=== PATIENT | female | born 1955 | race Native Hawaiian/Other Pacific Islander ===

== ENCOUNTER 2017-08-17 09:09 | Inpatient (IN) | payer MEDICAID ==
[2017-08-17] MEDS ORDERED: Sodium Chloride 0.9% 500 ML IV ONE ×2 (11:28→12:18)
--- NOTE | 2017-08-17 11:56 | RAD ---
HISTORY: cough, fever COMPARISON: 06/10/2016 TECHNIQUE: Chest PA and lateral FINDINGS: LUNGS: No active pulmonary disease. PLEURA: No significant pleural effusion identified. No pneumothorax apparent. CARDIOVASCULAR: Normal. OSSEOUS STRUCTURES: No significant abnormalities. VISUALIZED UPPER ABDOMEN: Normal. OTHER FINDINGS: None. IMPRESSION: No active disease.
[2017-08-17 12:09] LABS: BASO % 0.6 % (0.0-2.0); EOS % 0.1 % (0.0-4.0); HEMOGLOBIN 12.8 g/dL (11.0-16.0); LYMPH # 0.2 K/uL (1.0-4.3); LYMPH % 5.4 % (20.0-40.0); MEAN CORPUSCULAR HEMOGLOBIN 31.9 pg (27.0-31.0); MEAN CORPUSCULAR HGB CONC 34.7 g/dL (33.0-37.0); MEAN PLATELET VOLUME 7.7 fL (7.2-11.7); MONO # 0.4 K/uL (0.0-0.8); MONO % 11.3 % (0.0-10.0); NEUT # 3.1 K/uL (1.8-7.0); NEUT % 82.6 % (50.0-75.0); NRBC % 0.1 % (0.0-2.0); PLATELET COUNT 237 K/uL (130-400); RED CELL DISTRIBUTION WIDTH 12.9 % (11.5-14.5); WHITE BLOOD COUNT 3.7 K/uL (4.8-10.8)
--- NOTE | 2017-08-17 12:22 | C.PDOC ---
History Of Present Illness 62 yr old female presents to the ER with complaints of cough, associated with chest congestion and chest discomfort for the 3 days. Patient states the symptoms have worsened over the past day and is now associated with dizziness. Also reports of 1 episode of vomiting. Denies fever, chills, SOB, nausea, abdominal pain or headache. Time Seen by Provider: 08/17/17 11:07 Chief Complaint (Nursing): Chest Pain History Per: Patient History/Exam Limitations: no limitations Onset/Duration Of Symptoms: Days (3) Current Symptoms Are (Timing): Still Present Past Medical History Reviewed: Historical Data, Nursing Documentation, Vital Signs Vital Signs: Last Vital Signs Temp 98.5 F 08/17/17 09:17 Pulse 91 H 08/17/17 09:17 Resp 16 08/17/17 09:17 BP 126/70 08/17/17 09:17 Pulse Ox 97 08/17/17 14:35 - Medical History PMH: Diabetes, HTN, Hypercholesterolemia - [facility] Procedures ESOPHAGOGASTRODUODENOSCOPY [EGD] W/CLOSED BIOPSY (09/12/04) Family History: States: No Known Family Hx - Social History Hx Tobacco Use: No Hx Alcohol Use: No Hx Substance Use: No - Immunization History Hx Tetanus Toxoid Vaccination: No Hx Influenza Vaccination: Yes Hx Pneumococcal Vaccination: No Review Of Systems Except As Marked, All Systems Reviewed And Found Negative. Constitutional: Negative for: Fever, Chills Cardiovascular: Positive for: Other (+ chest congestion, chest discomfort) Respiratory: Positive for: Cough. Negative for: Shortness of Breath Gastrointestinal: Positive for: Vomiting. Negative for: Nausea, Abdominal Pain Neurological: Positive for: Dizziness. Negative for: Headache Physical Exam - Physical Exam Appears: Non-toxic, No Acute Distress Skin: Warm, Dry, No Rash Head: Atraumatic, Normacephalic Eye(s): bilateral: Normal Inspection, PERRL, EOMI Ear(s): Bilateral: Normal Oral Mucosa: Moist Tongue: Normal Appearing Lips: Normal Appearing Throat: No Erythema, No Exudate Neck: Normal ROM, Supple Chest: Symmetrical, No Tenderness Cardiovascular: Rhythm Regular, No Friction Rub, No Murmur Respiratory: Normal Breath Sounds, No Rales, No Rhonchi, No Stridor, No Wheezing Gastrointestinal/Abdominal: Normal Exam, Soft, No Tenderness, No Guarding, No Rebound Back: Normal Inspection, No CVA Tenderness Extremity: Normal ROM, No Swelling Neurological/Psych: Oriented x3, Normal Speech, Normal Motor, Normal Sensation Gait: Steady ED Course And Treatment - Laboratory Results Result Diagrams: 08/17/17 11:56 08/17/17 13:07 O2 Sat by Pulse Oximetry: 97 (RA) Pulse Ox Interpretation: Normal Medical Decision Making Medical Decision Making: PLAN: * CXR * EKG * Labs * Influenza * Urinalysis * Zofran IVP * Sodium Chloride IV The case was discussed with Dr. Hui Villegas, who agrees to admit the patient. 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 - Scribe Statement The provider has reviewed the documentation as recorded by the Scribe Iraida Linton All medical record entries made by the Scribe were at my direction and personally dictated by me. I have reviewed the chart and agree that the record accurately reflects my personal performance of the history, physical exam, medical decision making, and the department course for this patient. I have also personally directed, reviewed, and agree with the discharge instructions and disposition.
[2017-08-17 12:48] LABS: URINE BILIRUBIN NEGATIVE (NEGATIVE); URINE BLOOD NEGATIVE (NEGATIVE); URINE CLARITY Clear (Clear); URINE COLOR Yellow (YELLOW); URINE GLUCOSE (UA) NORMAL (Normal); URINE LEUKOCYTE ESTERASE NEG Leu/uL (Negative); URINE NITRATE NEGATIVE (NEGATIVE); URINE PROTEIN NEGATIVE (NEGATIVE); URINE UROBILINOGEN NORMAL mg/dL (0.2-1.0)
[2017-08-17 13:04] LABS: BANDS 1 % (0-2); BASOPHIL 1 % (0-2); LYMPHOCYTE 5 % (20-40); MONOCYTE 10 % (0-10); NEUTROPHIL 83 % (50-75); PLATELET ESTIMATE NORMAL (NORMAL); TOTAL CELLS COUNTED 100
[2017-08-17 13:32] LABS: ALT/SGPT 32 U/L (9-52); AST/SGOT 16 U/L (14-36); BLOOD UREA NITROGEN 6 mg/dL (7-17); GFR AFRICAN-AMERICAN > 60; GFR NON-AFRICAN AMERICAN > 60
[2017-08-17] MEDS ORDERED: Potassium Chloride 20 mEq ER Tab PO STA (14:17)
[2017-08-17] MEDS ORDERED: Potassium Chloride 20 mEq ER Tab PO ONE (14:22)
[2017-08-17] MEDS ORDERED: Calcium Gluconate 4.65 MEQ in Dextrose 5% In Water 100 ML IV STA ×2 (14:40→14:42)
[2017-08-17 15:12] LABS: MAGNESIUM 1.7 mg/dL (1.6-2.3)
--- NOTE | 2017-08-17 19:36 | CP.PCM.HP ---
Past Patient History - Past Medical History & Family History Past Medical History?: Yes - Past Social History Smoking Status: Never Smoked - CARDIAC Hx Hypercholesterolemia: Yes Hx Hypertension: Yes - PULMONARY Hx Respiratory Disorders: No - NEUROLOGICAL Hx Neurological Disorder: Yes Hx Vertigo: Yes - HEENT Hx HEENT Problems: No - RENAL Hx Chronic Kidney Disease: No - ENDOCRINE/METABOLIC Hx Endocrine Disorders: Yes Hx Diabetes Mellitus Type 2: Yes - HEMATOLOGICAL/ONCOLOGICAL Hx Blood Disorders: No - INTEGUMENTARY Hx Dermatological Problems: No - MUSCULOSKELETAL/RHEUMATOLOGICAL Hx Falls: No - GASTROINTESTINAL Hx Gastrointestinal Disorders: No - GENITOURINARY/GYNECOLOGICAL Hx Genitourinary Disorders: No - PSYCHIATRIC Hx Substance Use: No - SURGICAL HISTORY Hx Surgeries: Yes Hx Hysterectomy: Yes (1993) Other/Comment: varicose vein stripping 1995 - ANESTHESIA Hx Anesthesia: Yes Hx Anesthesia Reactions: No Meds Allergies/Adverse Reactions: Allergies Allergy/AdvReac Type Severity Reaction Status Date / Time No Known Allergies Allergy Verified 08/17/17 09:17 Physical Exam - Constitutional Appears: Well - Head Exam Head Exam: ATRAUMATIC, NORMAL INSPECTION, NORMOCEPHALIC - Eye Exam Eye Exam: EOMI, Normal appearance, PERRL Pupil Exam: NORMAL ACCOMODATION, PERRL - ENT Exam ENT Exam: Mucous Membranes Moist, Normal Exam - Neck Exam Neck exam: Positive for: Normal Inspection - Respiratory Exam Respiratory Exam: Decreased Breath Sounds - Cardiovascular Exam Cardiovascular Exam: REGULAR RHYTHM, +S1, +S2 - GI/Abdominal Exam GI & Abdominal Exam: Diminished Bowel Sounds, Soft - Rectal Exam Rectal Exam: Deferred Results - Vital Signs Recent Vital Signs: Last Vital Signs Temp 99.2 F 08/17/17 19:08 Pulse 93 H 08/17/17 19:08 Resp 20 08/17/17 19:08 BP 101/51 L 08/17/17 19:08 Pulse Ox 96 08/17/17 19:08 - Labs Result Diagrams: 08/17/17 11:56 08/17/17 13:07 Labs: Laboratory Results - last 24 hr 08/17/17 08/17/17 08/17/17 11:28 11:56 12:33 WBC 3.7 L RBC 4.00 Hgb 12.8 Hct 36.8 MCV 92.0 D MCH 31.9 H MCHC 34.7 RDW 12.9 Plt Count 237 MPV 7.7 Neut % (Auto) 82.6 H Lymph % (Auto) 5.4 L [place] % (Auto) 11.3 H Eos % (Auto) 0.1 Baso % (Auto) 0.6 Neut # (Auto) 3.1 Lymph # (Auto) 0.2 L [place] # (Auto) 0.4 Eos # (Auto) 0.0 Baso # (Auto) 0.0 Neutrophils % (Manual) 83 H Band Neutrophils % 1 Lymphocytes % (Manual) 5 L Monocytes % (Manual) 10 Basophils % (Manual) 1 Platelet Estimate Normal Sodium Potassium Chloride Carbon Dioxide Anion Gap BUN Creatinine Est GFR ( Amer) Est GFR (Non-Af Amer) Random Glucose Calcium Phosphorus Magnesium Total Bilirubin AST ALT Alkaline Phosphatase Total Protein Albumin Globulin Albumin/Globulin Ratio Urine Color Yellow Urine Clarity Clear Urine pH 6.0 Ur Specific [place] 1.009 Urine Protein Negative Urine Glucose (UA) Normal Urine Ketones Negative Urine Blood Negative Urine Nitrate Negative Urine Bilirubin Negative Urine Urobilinogen Normal Ur Leukocyte Esterase Neg Urine WBC (Auto) 1 Urine RBC (Auto) 5 H Influenza Typ A,B (EIA) Pos for influenza a H 08/17/17 08/17/17 13:07 14:45 WBC RBC Hgb Hct MCV MCH MCHC RDW Plt Count MPV Neut % (Auto) Lymph % (Auto) [place] % (Auto) Eos % (Auto) Baso % (Auto) Neut # (Auto) Lymph # (Auto) [place] # (Auto) Eos # (Auto) Baso # (Auto) Neutrophils % (Manual) Band Neutrophils % Lymphocytes % (Manual) Monocytes % (Manual) Basophils % (Manual) Platelet Estimate Sodium 130 L Potassium 2.3 L* D Chloride 106 Carbon Dioxide 19 L Anion Gap 8 L BUN 6 L Creatinine 0.4 L Est GFR ( Amer) > 60 Est GFR (Non-Af Amer) > 60 Random Glucose 73 Calcium 5.0 L* D Phosphorus 3.8 Magnesium 1.7 Total Bilirubin 0.2 AST 16 ALT 32 Alkaline Phosphatase 23 L Total Protein 4.1 L Albumin 2.0 L D Globulin 2.1 L Albumin/Globulin Ratio 1.0 Urine Color Urine Clarity Urine pH Ur Specific [place] Urine Protein Urine Glucose (UA) Urine Ketones Urine Blood Urine Nitrate Urine Bilirubin Urine Urobilinogen Ur Leukocyte Esterase Urine WBC (Auto) Urine RBC (Auto) Influenza Typ A,B (EIA)
[2017-08-17] MEDS ORDERED: Moxifloxacin IV 400mg/250ml NS 400 MG/250 ML BAG IVPB SCH (20:00)
[2017-08-17] MEDS ORDERED: Sodium Chloride 0.9% 0 ML ONE (23:12)
[2017-08-18] MEDS: Pantoprazole 40 mg EC Tab PO SCH (09:06)
[2017-08-18] MEDS: Metoprolol Succinate 25 mg XL Tab PO SCH ×2 (09:06→18:03)
[2017-08-18 09:31] LABS: BASO % 0.4 % (0.0-2.0); EOS % 0.1 % (0.0-4.0); HEMOGLOBIN 12.9 g/dL (11.0-16.0); LYMPH # 0.6 K/uL (1.0-4.3); LYMPH % 25.6 % (20.0-40.0); MEAN CELL VOLUME 91.4 fL (81.0-99.0); MEAN CORPUSCULAR HEMOGLOBIN 31.5 pg (27.0-31.0); MEAN CORPUSCULAR HGB CONC 34.5 g/dL (33.0-37.0); MEAN PLATELET VOLUME 7.8 fL (7.2-11.7); MONO # 0.3 K/uL (0.0-0.8); NEUT # 1.4 K/uL (1.8-7.0); NEUT % 58.9 % (50.0-75.0); NRBC % 0.1 % (0.0-2.0); RBC 4.11 Mil/uL (3.80-5.20); RED CELL DISTRIBUTION WIDTH 12.9 % (11.5-14.5); WHITE BLOOD COUNT 2.3 K/uL (4.8-10.8)
[2017-08-18] MEDS: Enoxaparin 40 mg Syringe SC SCH (09:43)
--- NOTE | 2017-08-18 09:52 | CP.PCM.CON ---
History of Present Illness - History of Present Illness History of Present Illness: 62 yr old female presents to the ER with complaints of cough, associated with chest congestion and chest discomfort for the 3 days. Patient states the symptoms have worsened over the past day and is now associated with dizziness. Also reports of 1 episode of vomiting. Denies fever, chills, SOB, nausea, abdominal pain or headache. influenza a + started on IV antibiotics after septic work up sent - Medical History PMH: Diabetes, HTN, Hypercholesterolemia - [facility] Procedures ESOPHAGOGASTRODUODENOSCOPY [EGD] W/CLOSED BIOPSY (09/12/04) Review of Systems - Review of Systems All systems: reviewed and no additional remarkable complaints except - Constitutional Constitutional: absent: As Per HPI, Anorexia, Chills, Daytime Sleepiness, Excessive Sweating, Fatigue, Fever, Frequent Falls, Headache, Increased Appetite , Lethargy, Malaise, Night Sweats, Snoring, Sleep Apnea, Weight Gain, Weight Loss, Weakness, Other - EENT Eyes: absent: As Per HPI, Blind Spots, Blurred Vision, Change in Vision, Decreased Night Vision, Diplopia, Discharge, Dry Eye, Exophthalmos, Floaters, Irritation, Itchy Eyes, Loss of Peripheral Vision, Pain, Photophobia, Requires Corrective Lenses, Sees Flashes, Spots in Vision, Tunnel Vision, Other Visual Disturbances, Loss of Vision, Other Ears: absent: As Per HPI, Decreased Hearing, Ear Discharge, Ear Pain, Tinnitus, Abnormal Hearing, Disequilibrium, Dizziness, Other Nose/Mouth/Throat: absent: As Per HPI, Epistaxis, Nasal Congestion, Nasal Discharge, Nasal Obstruction, Nasal Trauma, Nose Pain, Post Nasal Drip, Sinus Pain, Sinus Pressure, Bleeding Gums, Change in Voice, Dental Pain, Dry Mouth, Dysphagia, Halitosis, Hoarsness, Lip Swelling, Mouth Lesions, Mouth Pain, Odynophagia, Sore Throat, Throat Swelling, Tongue Swelling, Facial Pain, Neck Pain, Neck Mass, Other - Breasts Breasts: absent: As Per HPI, Change in Shape, Mass, Pain, Nipple Discharge, Nipple Inversion, Skin Changes, Swelling, Other - Cardiovascular Cardiovascular: absent: As Per HPI, Acrocyanosis, Chest Pain, Chest Pain at Rest , Chest Pain with Activity, Claudication, Diaphoresis, Dyspnea, Dyspnea on Exertion, Edema, Irregular Heart Rhythm, Pain Radiating to Arm/Neck/Jaw, Leg Edema, Leg Ulcers, Lightheadedness, Orthopnea, Palpitations, Paroxysmal Nocturnal Dyspnea, Pedal Edema, Radiating Pain, Rapid Heart Rate, Slow Heart Rate, Syncope, Other - Respiratory Respiratory: As Per HPI, Cough - Gastrointestinal Gastrointestinal: absent: As Per HPI, Abdominal Pain, Belching, Bloating, Change in Bowel Habits, Change in Stool Character, Coffee Ground Emesis, Constipation, Cramping, Diarrhea, Dyspepsia, Dysphagia, Early Satiety, Excessive Flatus, Fecal Incontinence, Heartburn, Hematemesis, Hematochezia, Loose Stools, Melena, Nausea, Odynophagia, Temesmus, Vomiting, Other - Genitourinary Genitourinary: absent: As Per HPI, Change in Urinary Stream, Difficulty Urinating, Dysuria, Flank Pain, Hematuria, Pyuria, Nocturia, Urinary Incontinence, Urinary Frequency, Urinary Hesitance, Urinary Urgency, Voiding Freq/Small Amts, Freq UTI, Hx Renal/Bladder Calculi, Hx /Renal Surgery, Bladder Distension, Other - Reproductive: Female Reproductive:Female: absent: As Per HPI, Amenorrhea, Amenorrhea/ Control, Currently Menstual, Cycle <21 Days, Cycle >35 Days, Cycle Variable, Menses 1-7 Days, Menses >/= 8 Days, Menses Variable, Cycle > 4 Weeks Between, No Menses for 6 Months, Heavy Menses, Light Menses, Normal Menses, Spotting Between Cycles , S/P Hysterectomy, Menopausal, Post Menopausal, Premenarche, Abnormal Vaginal Bleeding, Dysmenorrhea, Dyspareunia, Genital Lesions, Genital Pruritis, Pelvic Pain, Prolapse Symptoms, Sexual Dysfunction, Vaginal Discharge, Vaginal Dryness , Vaginal Odor, Vaginal Pruritis, Other - Menstruation Menstruation: absent: As Per HPI, Amenorrhea, Amenorrhea/ Control, Currently Menstual, Cycle <21 Days, Cycle >35 Days, Cycle Variable, Menses 1-7 Days, Menses >/= 8 Days, Menses Variable, Cycle > 4 Weeks Between, No Menses for 6 Months, Heavy Menses, Light Menses, Normal Menses, Spotting Between Cycles , S/P Hysterectomy, Menopausal, Post Menopausal, Premenarche, Abnormal Vaginal Bleeding, Dysmenorrhea, Other - Musculoskeletal Musculoskeletal: absent: As Per HPI, Abnormal Gait, Arthralgias, Atrophy, Back Pain, Deformity, Joint Swelling, Limited Range of Motion, Loss of Height, Muscle Cramps, Muscle Weakness, Myalgias, Neck Pain, Numbness, Radiating Pain into Limb, Stiffness, Tingling, Other - Integumentary Integumentary: absent: As Per HPI, Acne, Alopecia, Bleeding Lesions, Change in Hair, Change in Nails, Change in Pigmentation, Changing Lesions, Dry Skin, Erythema, Furuncle, Hirsutism, Lesions, New Lesions, Non-Healing Lesions, Photosensitivity, Pruritus, Rash, Skin Pain, Skin Ulcer, Sores, Striae, Swelling , Unusual Bruising, Wounds, Jaundice, Other - Neurological Neurological: absent: As Per HPI, Abnormal Gait, Abnormal Hearing, Abnormal Movements, Abnormal Speech, Behavioral Changes, Burning Sensations, Confusion, Convulsions, Disequilibrium, Dizziness, Numbness, Focal Weakness, Frequent Falls , Headaches, Lack of Coordination, Loss of Vision, Memory Loss, Paresthesias, Radicular Pain, Restless Legs, Sensory Deficit, Syncope, Tingling, Tremor, Vertigo, Weakness, Other Visual Disturbances, Other - Psychiatric Psychiatric: absent: As Per HPI, Abnormal Sleep Pattern, Anhedonia, Anxiety, Auditory Hallucinations, Behavioral Changes, Change in Appetite, Change in Libido, Confusion, Depression, Difficulty Concentrating, Hallucinations, Homicidal Ideation, Hopelessness, Irritability, Memory Loss, Mood Swings, Panic Attacks, Paranoia, Suicidal Ideation, Visual Hallucinations, Tactile Hallucinations, Other - Endocrine Endocrine: absent: As Per HPI, Change in Body Appearance, Change in Libido, Cold Intolorance, Deepening of Voice, Excessive Sweating, Fatigue, Flushing, Heat Intolorance, Increase in Ring/Shoe/Hat Size, Palpitations, Polydipsia, Polyphagia, Polyuria, Other - Hematologic/Lymphatic Hematologic: absent: As Per HPI, Easy Bleeding, Easy Bruising, Lymphadenopathy, Other Past Patient History - Past Medical History & Family History Past Medical History?: Yes - Past Social History Smoking Status: Never Smoked - CARDIAC Hx Hypercholesterolemia: Yes Hx Hypertension: Yes - PULMONARY Hx Respiratory Disorders: No - NEUROLOGICAL Hx Neurological Disorder: Yes Hx Vertigo: Yes - HEENT Hx HEENT Problems: No - RENAL Hx Chronic Kidney Disease: No - ENDOCRINE/METABOLIC Hx Endocrine Disorders: Yes Hx Diabetes Mellitus Type 2: Yes - HEMATOLOGICAL/ONCOLOGICAL Hx Blood Disorders: No - INTEGUMENTARY Hx Dermatological Problems: No - MUSCULOSKELETAL/RHEUMATOLOGICAL Hx Falls: No - GASTROINTESTINAL Hx Gastrointestinal Disorders: No - GENITOURINARY/GYNECOLOGICAL Hx Genitourinary Disorders: No - PSYCHIATRIC Hx Substance Use: No - SURGICAL HISTORY Hx Surgeries: Yes Hx Hysterectomy: Yes (1993) Other/Comment: varicose vein stripping 1995 - ANESTHESIA Hx Anesthesia: Yes Hx Anesthesia Reactions: No Meds Allergies/Adverse Reactions: Allergies Allergy/AdvReac Type Severity Reaction Status Date / Time No Known Allergies Allergy Verified 08/17/17 09:17 - Medications Medications: Current Medications Docusate Sodium (Colace) 100 mg PO DAILY [facility] Last Admin: 08/18/17 09:06 Dose: 100 mg Enalapril Maleate (Vasotec) 2.5 mg PO BID [facility] Last Admin: 08/18/17 09:06 Dose: 2.5 mg Enoxaparin Sodium (Lovenox) 40 mg SC DAILY [facility] Last Admin: 08/18/17 09:43 Dose: 40 mg Moxifloxacin HCl (Avelox Iv 400mg/250ml Ns) 400 mg in 250 mls @ 167 mls/hr IVPB Q24H [facility] Last Admin: 08/17/17 20:55 Dose: 167 mls/hr Ibuprofen (Motrin Tab) 600 mg PO Q6H PRN PRN Reason: Pain, moderate (4-7) Last Admin: 08/18/17 09:05 Dose: 600 mg Metformin HCl (Glucophage) 500 mg PO BID [facility] Last Admin: 08/18/17 09:06 Dose: 500 mg Metoprolol Succinate (Toprol Xl) 25 mg PO BID [facility] Last Admin: 08/18/17 09:06 Dose: 25 mg Oseltamivir Phosphate (Tamiflu Cap) 75 mg PO BID [facility] Stop: 08/22/17 19:55 Last Admin: 08/18/17 09:06 Dose: 75 mg Pantoprazole Sodium (Protonix Ec Tab) 40 mg PO DAILY [facility] Last Admin: 08/18/17 09:06 Dose: 40 mg Physical Exam - Constitutional Appears: Non-toxic, Chronically Ill - Head Exam Head Exam: NORMOCEPHALIC - Eye Exam Eye Exam: PERRL - ENT Exam ENT Exam: Mucous Membranes Dry - Neck Exam Neck exam: Negative for: Lymphadenopathy, Thyromegaly - Respiratory Exam Respiratory Exam: Decreased Breath Sounds, Rhonchi - Cardiovascular Exam Cardiovascular Exam: REGULAR RHYTHM, +S1, +S2 - GI/Abdominal Exam GI & Abdominal Exam: Diminished Bowel Sounds, Soft. absent: Tenderness - Rectal Exam Rectal Exam: Deferred - Exam Exam: NORMAL INSPECTION - Extremities Exam Extremities exam: Negative for: pedal edema - Back Exam Back exam: absent: CVA tenderness (L), CVA tenderness (R) - Neurological Exam Neurological exam: Alert, CN II-XII Intact, Oriented x3, Reflexes Normal - Psychiatric Exam Psychiatric exam: Normal Mood - Skin Skin Exam: Dry Results - Vital Signs Recent Vital Signs: Last Vital Signs Temp 98.9 F 08/18/17 07:47 Pulse 84 08/18/17 07:47 Resp 18 08/18/17 07:47 BP 132/77 08/18/17 09:06 Pulse Ox 96 08/18/17 07:47 - Labs Result Diagrams: 08/18/17 07:44 08/18/17 09:48 Labs: Laboratory Results - last 24 hr 08/17/17 08/17/17 08/17/17 11:28 11:56 12:33 WBC 3.7 L RBC 4.00 Hgb 12.8 Hct 36.8 MCV 92.0 D MCH 31.9 H MCHC 34.7 RDW 12.9 Plt Count 237 MPV 7.7 Neut % (Auto) 82.6 H Lymph % (Auto) 5.4 L [place] % (Auto) 11.3 H Eos % (Auto) 0.1 Baso % (Auto) 0.6 Neut # (Auto) 3.1 Lymph # (Auto) 0.2 L [place] # (Auto) 0.4 Eos # (Auto) 0.0 Baso # (Auto) 0.0 Neutrophils % (Manual) 83 H Band Neutrophils % 1 Lymphocytes % (Manual) 5 L Monocytes % (Manual) 10 Basophils % (Manual) 1 Platelet Estimate Normal Sodium Potassium Chloride Carbon Dioxide Anion Gap BUN Creatinine Est GFR ( Amer) Est GFR (Non-Af Amer) POC Glucose (mg/dL) Random Glucose Calcium Phosphorus Magnesium Total Bilirubin AST ALT Alkaline Phosphatase Total Protein Albumin Globulin Albumin/Globulin Ratio Urine Color Yellow Urine Clarity Clear Urine pH 6.0 Ur Specific [place] 1.009 Urine Protein Negative Urine Glucose (UA) Normal Urine Ketones Negative Urine Blood Negative Urine Nitrate Negative Urine Bilirubin Negative Urine Urobilinogen Normal Ur Leukocyte Esterase Neg Urine WBC (Auto) 1 Urine RBC (Auto) 5 H Influenza Typ A,B (EIA) Pos for influenza a H 08/17/17 08/17/17 08/17/17 13:07 14:45 21:22 WBC RBC Hgb Hct MCV MCH MCHC RDW Plt Count MPV Neut % (Auto) Lymph % (Auto) [place] % (Auto) Eos % (Auto) Baso % (Auto) Neut # (Auto) Lymph # (Auto) [place] # (Auto) Eos # (Auto) Baso # (Auto) Neutrophils % (Manual) Band Neutrophils % Lymphocytes % (Manual) Monocytes % (Manual) Basophils % (Manual) Platelet Estimate Sodium 130 L Potassium 2.3 L* D Chloride 106 Carbon Dioxide 19 L Anion Gap 8 L BUN 6 L Creatinine 0.4 L Est GFR ( Amer) > 60 Est GFR (Non-Af Amer) > 60 POC Glucose (mg/dL) 131 H Random Glucose 73 Calcium 5.0 L* D Phosphorus 3.8 Magnesium 1.7 Total Bilirubin 0.2 AST 16 ALT 32 Alkaline Phosphatase 23 L Total Protein 4.1 L Albumin 2.0 L D Globulin 2.1 L Albumin/Globulin Ratio 1.0 Urine Color Urine Clarity Urine pH Ur Specific [place] Urine Protein Urine Glucose (UA) Urine Ketones Urine Blood Urine Nitrate Urine Bilirubin Urine Urobilinogen Ur Leukocyte Esterase Urine WBC (Auto) Urine RBC (Auto) Influenza Typ A,B (EIA) 08/18/17 08/18/17 07:43 07:44 WBC 2.3 L RBC 4.11 Hgb 12.9 Hct 37.5 MCV 91.4 MCH 31.5 H MCHC 34.5 RDW 12.9 Plt Count 203 MPV 7.8 Neut % (Auto) 58.9 Lymph % (Auto) 25.6 [place] % (Auto) 15.0 H Eos % (Auto) 0.1 Baso % (Auto) 0.4 Neut # (Auto) 1.4 L Lymph # (Auto) 0.6 L [place] # (Auto) 0.3 Eos # (Auto) 0.0 Baso # (Auto) 0.0 Neutrophils % (Manual) Band Neutrophils % Lymphocytes % (Manual) Monocytes % (Manual) Basophils % (Manual) Platelet Estimate Sodium Potassium Chloride Carbon Dioxide Anion Gap BUN Creatinine Est GFR ( Amer) Est GFR (Non-Af Amer) POC Glucose (mg/dL) 107 Random Glucose Calcium Phosphorus Magnesium Total Bilirubin AST ALT Alkaline Phosphatase Total Protein Albumin Globulin Albumin/Globulin Ratio Urine Color Urine Clarity Urine pH Ur Specific [place] Urine Protein Urine Glucose (UA) Urine Ketones Urine Blood Urine Nitrate Urine Bilirubin Urine Urobilinogen Ur Leukocyte Esterase Urine WBC (Auto) Urine RBC (Auto) Influenza Typ A,B (EIA) Assessment & Plan (1) Dehydration Status: Acute (2) Dehydration Status: Acute (3) Hyponatremia Status: Acute (4) Influenza A Status: Acute (5) Chest pain Status: Acute (6) Upper respiratory infection Status: Acute (7) Viral syndrome Status: Acute (8) Diabetes type 2, controlled Status: Chronic (9) HTN (hypertension) Status: Chronic (10) Hypercholesteremia Status: Chronic (11) Lupus Status: Chronic - Assessment and Plan (Free Text) Assessment: cont hydration, iv fluids antibiotics await cultures
[2017-08-18 10:12] LABS: ALB/GLOB RATIO 1.3 (1.0-2.1); ALBUMIN 3.7 g/dL (3.5-5.0); ALT/SGPT 45 U/L (9-52); AST/SGOT 44 U/L (14-36); BLOOD UREA NITROGEN 8 mg/dL (7-17); GFR AFRICAN-AMERICAN > 60; GFR NON-AFRICAN AMERICAN > 60; MAGNESIUM 1.8 mg/dL (1.6-2.3)
--- NOTE | 2017-08-18 17:03 | CP.PCM.PN ---
Subjective - Date & Time of Evaluation Date of Evaluation: 08/18/17 Time of Evaluation: 10:40 - Subjective Subjective: clinically same Objective - Vital Signs/Intake and Output Vital Signs (last 24 hours): Temp Pulse Resp BP Pulse Ox 98.2 F 68 18 123/77 97 08/18/17 15:28 08/18/17 16:18 08/18/17 15:28 08/18/17 15:28 08/18/17 15:28 Intake and Output: 08/18/17 08/18/17 06:59 18:59 Output Total 1500 Balance -1500 - Medications Medications: Current Medications Docusate Sodium (Colace) 100 mg PO DAILY [facility] Last Admin: 08/18/17 09:06 Dose: 100 mg Enalapril Maleate (Vasotec) 2.5 mg PO BID [facility] Last Admin: 08/18/17 09:06 Dose: 2.5 mg Enoxaparin Sodium (Lovenox) 40 mg SC DAILY [facility] Last Admin: 08/18/17 09:43 Dose: 40 mg Moxifloxacin HCl (Avelox Iv 400mg/250ml Ns) 400 mg in 250 mls @ 167 mls/hr IVPB Q24H [facility] Last Admin: 08/17/17 20:55 Dose: 167 mls/hr Ibuprofen (Motrin Tab) 600 mg PO Q6H PRN PRN Reason: Pain, moderate (4-7) Last Admin: 08/18/17 09:05 Dose: 600 mg Metformin HCl (Glucophage) 500 mg PO BID [facility] Last Admin: 08/18/17 09:06 Dose: 500 mg Metoprolol Succinate (Toprol Xl) 25 mg PO BID [facility] Last Admin: 08/18/17 09:06 Dose: 25 mg Oseltamivir Phosphate (Tamiflu Cap) 75 mg PO BID [facility] Stop: 08/22/17 19:55 Last Admin: 08/18/17 09:06 Dose: 75 mg Pantoprazole Sodium (Protonix Ec Tab) 40 mg PO DAILY [facility] Last Admin: 08/18/17 09:06 Dose: 40 mg - Labs Labs: 08/18/17 07:44 08/18/17 09:48 - Constitutional Appears: Well - Head Exam Head Exam: ATRAUMATIC, NORMAL INSPECTION, NORMOCEPHALIC - Eye Exam Eye Exam: EOMI, Normal appearance, PERRL Pupil Exam: NORMAL ACCOMODATION, PERRL - ENT Exam ENT Exam: Mucous Membranes Moist, Normal Exam - Neck Exam Neck Exam: Full ROM, Normal Inspection. absent: Lymphadenopathy - Respiratory Exam Respiratory Exam: Decreased Breath Sounds - Cardiovascular Exam Cardiovascular Exam: REGULAR RHYTHM, +S1, +S2 - GI/Abdominal Exam GI & Abdominal Exam: Soft, Diminished Bowel Sounds - Rectal Exam Rectal Exam: Deferred
--- NOTE | 2017-08-18 17:13 | CP.PCM.CON ---
History of Present Illness - History of Present Illness History of Present Illness: 62 yr old female presents to the ER with complaints of cough, associated with chest congestion and chest discomfort for the 3 days. Patient states the symptoms have worsened over the past day and is now associated with dizziness. Also reports of 1 episode of vomiting, poor po intae due to illness.. Denies fever, chills, SOB, nausea, abdominal pain or headache. She is influenza a + Pt was found to have a potassium of 2.9 meq/dl and a low sodium of 129 meq/dl. REnal consulted for electrolyte disturbances. Pt denies any prior knowledge of kidney disease or electrolyte issues. She is on low dose lisinopril. PMHx: htn dm 2 hld soc hx: denies any toxic habits family hx: son w/ hx of ?kidney stones allergies: nkda 10 point ros obtained, negative except hpi Past Patient History - Past Medical History & Family History Past Medical History?: Yes - Past Social History Smoking Status: Never Smoked - CARDIAC Hx Hypercholesterolemia: Yes Hx Hypertension: Yes - PULMONARY Hx Respiratory Disorders: No - NEUROLOGICAL Hx Neurological Disorder: Yes Hx Vertigo: Yes - HEENT Hx HEENT Problems: No - RENAL Hx Chronic Kidney Disease: No - ENDOCRINE/METABOLIC Hx Endocrine Disorders: Yes Hx Diabetes Mellitus Type 2: Yes - HEMATOLOGICAL/ONCOLOGICAL Hx Blood Disorders: No - INTEGUMENTARY Hx Dermatological Problems: No - MUSCULOSKELETAL/RHEUMATOLOGICAL Hx Falls: Yes - GASTROINTESTINAL Hx Gastrointestinal Disorders: No - GENITOURINARY/GYNECOLOGICAL Hx Genitourinary Disorders: No - PSYCHIATRIC Hx Substance Use: No - SURGICAL HISTORY Hx Surgeries: Yes Hx Hysterectomy: Yes (1993) Other/Comment: varicose vein stripping 1995 - ANESTHESIA Hx Anesthesia: Yes Hx Anesthesia Reactions: No Meds Allergies/Adverse Reactions: Allergies Allergy/AdvReac Type Severity Reaction Status Date / Time No Known Allergies Allergy Verified 08/17/17 09:17 - Medications Medications: Current Medications Docusate Sodium (Colace) 100 mg PO DAILY [facility] Last Admin: 08/18/17 09:06 Dose: 100 mg Enalapril Maleate (Vasotec) 2.5 mg PO BID [facility] Last Admin: 08/18/17 09:06 Dose: 2.5 mg Enoxaparin Sodium (Lovenox) 40 mg SC DAILY [facility] Last Admin: 08/18/17 09:43 Dose: 40 mg Moxifloxacin HCl (Avelox Iv 400mg/250ml Ns) 400 mg in 250 mls @ 167 mls/hr IVPB Q24H [facility] Last Admin: 08/17/17 20:55 Dose: 167 mls/hr Ibuprofen (Motrin Tab) 600 mg PO Q6H PRN PRN Reason: Pain, moderate (4-7) Last Admin: 08/18/17 09:05 Dose: 600 mg Metformin HCl (Glucophage) 500 mg PO BID [facility] Last Admin: 08/18/17 09:06 Dose: 500 mg Metoprolol Succinate (Toprol Xl) 25 mg PO BID [facility] Last Admin: 08/18/17 09:06 Dose: 25 mg Oseltamivir Phosphate (Tamiflu Cap) 75 mg PO BID [facility] Stop: 08/22/17 19:55 Last Admin: 08/18/17 09:06 Dose: 75 mg Pantoprazole Sodium (Protonix Ec Tab) 40 mg PO DAILY [facility] Last Admin: 08/18/17 09:06 Dose: 40 mg Physical Exam - Constitutional Appears: Non-toxic, No Acute Distress, Cachectic - Head Exam Head Exam: NORMAL INSPECTION - Eye Exam Eye Exam: Normal appearance Pupil Exam: NORMAL ACCOMODATION, PERRL - ENT Exam ENT Exam: Mucous Membranes Moist, Normal Exam - Neck Exam Neck exam: Positive for: Normal Inspection - Respiratory Exam Respiratory Exam: Clear to Auscultation Bilateral, NORMAL BREATHING PATTERN - Cardiovascular Exam Cardiovascular Exam: REGULAR RHYTHM, RRR - GI/Abdominal Exam GI & Abdominal Exam: Distended, Normal Bowel Sounds, Soft - Extremities Exam Extremities exam: Positive for: full ROM, normal inspection - Neurological Exam Neurological exam: Alert, CN II-XII Intact, Oriented x3 - Skin Skin Exam: Intact, Normal Color, Warm Results - Vital Signs Recent Vital Signs: Last Vital Signs Temp 98.2 F 08/18/17 15:28 Pulse 68 08/18/17 16:18 Resp 18 08/18/17 15:28 BP 123/77 08/18/17 15:28 Pulse Ox 97 08/18/17 15:28 - Labs Result Diagrams: 08/18/17 07:44 08/18/17 09:48 Labs: Laboratory Results - last 24 hr 08/17/17 08/18/17 08/18/17 21:22 07:43 07:44 WBC 2.3 L RBC 4.11 Hgb 12.9 Hct 37.5 MCV 91.4 MCH 31.5 H MCHC 34.5 RDW 12.9 Plt Count 203 MPV 7.8 Neut % (Auto) 58.9 Lymph % (Auto) 25.6 Wallace % (Auto) 15.0 H Eos % (Auto) 0.1 Baso % (Auto) 0.4 Neut # (Auto) 1.4 L Lymph # (Auto) 0.6 L Wallace # (Auto) 0.3 Eos # (Auto) 0.0 Baso # (Auto) 0.0 Sodium Potassium Chloride Carbon Dioxide Anion Gap BUN Creatinine Est GFR ( Amer) Est GFR (Non-Af Amer) POC Glucose (mg/dL) 131 H 107 Random Glucose Calcium Phosphorus Magnesium Total Bilirubin AST ALT Alkaline Phosphatase Total Protein Albumin Globulin Albumin/Globulin Ratio 08/18/17 08/18/17 08/18/17 09:48 12:56 16:50 WBC RBC Hgb Hct MCV MCH MCHC RDW Plt Count MPV Neut % (Auto) Lymph % (Auto) Wallace % (Auto) Eos % (Auto) Baso % (Auto) Neut # (Auto) Lymph # (Auto) Wallace # (Auto) Eos # (Auto) Baso # (Auto) Sodium 129 L Potassium 3.9 Chloride 96 L Carbon Dioxide 24 Anion Gap 13 BUN 8 Creatinine 0.7 Est GFR ( Amer) > 60 Est GFR (Non-Af Amer) > 60 POC Glucose (mg/dL) 81 109 Random Glucose 94 Calcium 8.0 L Phosphorus 3.4 Magnesium 1.8 Total Bilirubin 0.4 AST 44 H D ALT 45 Alkaline Phosphatase 46 Total Protein 6.5 Albumin 3.7 Globulin 2.8 Albumin/Globulin Ratio 1.3 Assessment & Plan (1) Dehydration Status: Acute (2) Hypokalemia Status: Acute (3) Hyponatremia Status: Acute (4) Influenza A Status: Acute (5) Chest discomfort Status: Acute - Assessment and Plan (Free Text) Assessment: -check ua, urine protein -urine na and osmolarity -repeat chem -potassium and calcium supplemented. check vit d levels. -maintain bp meds -
[2017-08-18 20:05] LABS: BLOOD UREA NITROGEN 11 mg/dL (7-17); GFR AFRICAN-AMERICAN > 60; GFR NON-AFRICAN AMERICAN 56
[2017-08-18 23:29] LABS: CREATININE, RANDOM URINE 34.4 mg/dL
[2017-08-19] MEDS: Pantoprazole 40 mg EC Tab PO SCH (10:44)
[2017-08-19] MEDS: Metoprolol Succinate 25 mg XL Tab PO SCH ×2 (10:45→17:14)
[2017-08-19] MEDS: Enoxaparin 40 mg Syringe SC SCH (10:48)
--- NOTE | 2017-08-19 11:46 | CP.PCM.PN ---
Subjective - Date & Time of Evaluation Date of Evaluation: 08/19/17 Time of Evaluation: 11:43 - Subjective Subjective: seen and examined breathing much improved, improved po intake c/o insomnia Pt also gives a hx of lupus (no renal involvement) and is on plaquenil at home Objective - Vital Signs/Intake and Output Vital Signs (last 24 hours): Temp Pulse Resp BP Pulse Ox 98 F 78 20 135/82 97 08/19/17 08:00 08/19/17 08:00 08/19/17 08:00 08/19/17 10:45 08/19/17 08:00 Intake and Output: 08/19/17 08/19/17 06:59 18:59 Intake Total 110 Output Total 400 Balance -290 - Medications Medications: Current Medications Docusate Sodium (Colace) 100 mg PO DAILY [facility] Last Admin: 08/19/17 10:45 Dose: 100 mg Enalapril Maleate (Vasotec) 2.5 mg PO BID [facility] Last Admin: 08/19/17 10:45 Dose: 2.5 mg Enoxaparin Sodium (Lovenox) 40 mg SC DAILY [facility] Last Admin: 08/19/17 10:48 Dose: 40 mg Ibuprofen (Motrin Tab) 600 mg PO Q6H PRN PRN Reason: Pain, moderate (4-7) Last Admin: 08/18/17 09:05 Dose: 600 mg Metformin HCl (Glucophage) 500 mg PO BID [facility] Last Admin: 08/19/17 10:44 Dose: 500 mg Metoprolol Succinate (Toprol Xl) 25 mg PO BID [facility] Last Admin: 08/19/17 10:45 Dose: 25 mg Moxifloxacin HCl (Avelox) 400 mg PO Q24H [facility] Last Admin: 08/18/17 21:10 Dose: 400 mg Oseltamivir Phosphate (Tamiflu Cap) 75 mg PO BID [facility] Stop: 08/22/17 19:55 Last Admin: 08/19/17 10:45 Dose: 75 mg Pantoprazole Sodium (Protonix Ec Tab) 40 mg PO DAILY [facility] Last Admin: 08/19/17 10:44 Dose: 40 mg - Labs Labs: 08/18/17 07:44 08/18/17 19:40 - Constitutional Appears: Non-toxic, No Acute Distress, Chronically Ill - Head Exam Head Exam: NORMAL INSPECTION - Eye Exam Eye Exam: Normal appearance, PERRL Pupil Exam: NORMAL ACCOMODATION - ENT Exam ENT Exam: Mucous Membranes Moist, Normal Exam - Neck Exam Neck Exam: Full ROM, Normal Inspection - Respiratory Exam Respiratory Exam: Clear to Ausculation Bilateral, NORMAL BREATHING PATTERN - Cardiovascular Exam Cardiovascular Exam: REGULAR RHYTHM, RRR - GI/Abdominal Exam GI & Abdominal Exam: Distended, Soft, Normal Bowel Sounds - Extremities Exam Extremities Exam: Full ROM, Normal Inspection - Neurological Exam Neurological Exam: Alert, Awake, CN II-XII Intact, Oriented x3 - Psychiatric Exam Psychiatric exam: Normal Affect, Normal Mood - Skin Skin Exam: Dry, Warm Assessment and Plan (1) Dehydration Status: Acute (2) Hypokalemia Status: Acute (3) Hyponatremia Status: Acute (4) Influenza A Status: Acute (5) Chest discomfort Status: Acute - Assessment and Plan (Free Text) Assessment: resolved electrolyte issues, watch na level hx of lupus, nl creatinine. ua w/o proteinuria, hematuria. maintain lisinopril recommend restart plaquenil/ pt reports being on calcitonin at home (?) , probably causing hypocalcemia. dc calcitonin
[2017-08-19 14:47] LABS: ALB/GLOB RATIO 1.2 (1.0-2.1); ALBUMIN 3.7 g/dL (3.5-5.0); ALT/SGPT 40 U/L (9-52); AST/SGOT 34 U/L (14-36); BLOOD UREA NITROGEN 14 mg/dL (7-17); CALCIUM 8.5 mg/dl (8.6-10.4); GFR AFRICAN-AMERICAN > 60; GFR NON-AFRICAN AMERICAN > 60; MAGNESIUM 1.5 mg/dL (1.6-2.3)
--- NOTE | 2017-08-19 16:44 | CARD ---
APPROVED REPORT EKG Measurement Heart [id number] <Conclusion> Normal sinus rhythm Junctional ST depression, probably normal Borderline ECG
--- NOTE | 2017-08-19 17:50 | CP.PCM.PN ---
Subjective - Date & Time of Evaluation Date of Evaluation: 08/19/17 Time of Evaluation: 07:00 - Subjective Subjective: 62 yr old female presents to the ER with complaints of cough, associated with chest congestion and chest discomfort for the 3 days. Patient states the symptoms have worsened over the past day and is now associated with dizziness. Also reports of 1 episode of vomiting. Denies fever, chills, SOB, nausea, abdominal pain or headache. influenza a + started on IV antibiotics after septic work up sent Objective - Vital Signs/Intake and Output Vital Signs (last 24 hours): Temp Pulse Resp BP Pulse Ox 98.4 F 75 20 135/72 98 08/19/17 15:27 08/19/17 15:45 08/19/17 15:27 08/19/17 17:11 08/19/17 15:27 Intake and Output: 08/19/17 08/19/17 06:59 18:59 Intake Total 110 Output Total 400 Balance -290 - Medications Medications: Current Medications Docusate Sodium (Colace) 100 mg PO DAILY [facility] Last Admin: 08/19/17 10:45 Dose: 100 mg Enalapril Maleate (Vasotec) 2.5 mg PO BID [facility] Last Admin: 08/19/17 17:11 Dose: 2.5 mg Enoxaparin Sodium (Lovenox) 40 mg SC DAILY [facility] Last Admin: 08/19/17 10:48 Dose: 40 mg Ibuprofen (Motrin Tab) 600 mg PO Q6H PRN PRN Reason: Pain, moderate (4-7) Last Admin: 08/18/17 09:05 Dose: 600 mg Metformin HCl (Glucophage) 500 mg PO BID [facility] Last Admin: 08/19/17 17:10 Dose: 500 mg Metoprolol Succinate (Toprol Xl) 25 mg PO BID [facility] Last Admin: 08/19/17 17:14 Dose: 25 mg Moxifloxacin HCl (Avelox) 400 mg PO Q24H [facility] Last Admin: 08/18/17 21:10 Dose: 400 mg Oseltamivir Phosphate (Tamiflu Cap) 75 mg PO BID [facility] Stop: 08/22/17 19:55 Last Admin: 08/19/17 17:10 Dose: 75 mg Pantoprazole Sodium (Protonix Ec Tab) 40 mg PO DAILY [facility] Last Admin: 08/19/17 10:44 Dose: 40 mg - Labs Labs: 08/18/17 07:44 08/19/17 13:59 - Constitutional Appears: Non-toxic, Chronically Ill - Head Exam Head Exam: NORMOCEPHALIC - Eye Exam Eye Exam: PERRL - ENT Exam ENT Exam: Mucous Membranes Dry - Neck Exam Neck Exam: absent: Lymphadenopathy - Respiratory Exam Respiratory Exam: Decreased Breath Sounds - Cardiovascular Exam Cardiovascular Exam: REGULAR RHYTHM - GI/Abdominal Exam GI & Abdominal Exam: Distended, Soft Assessment and Plan (1) Dehydration Status: Acute (2) Dehydration Status: Acute (3) Hyponatremia Status: Acute (4) Influenza A Status: Acute (5) Chest pain Status: Acute (6) Upper respiratory infection Status: Acute (7) Viral syndrome Status: Acute (8) Diabetes type 2, controlled Status: Chronic (9) HTN (hypertension) Status: Chronic (10) Hypercholesteremia Status: Chronic (11) Lupus Status: Chronic
--- NOTE | 2017-08-19 18:38 | CP.PCM.PN ---
Subjective - Date & Time of Evaluation Date of Evaluation: 08/19/17 Time of Evaluation: 14:40 - Subjective Subjective: clinically same Objective - Vital Signs/Intake and Output Vital Signs (last 24 hours): Temp Pulse Resp BP Pulse Ox 98.4 F 75 20 135/72 98 08/19/17 15:25 08/19/17 15:45 08/19/17 15:25 08/19/17 17:11 08/19/17 15:25 Intake and Output: 08/19/17 08/19/17 06:59 18:59 Intake Total 110 Output Total 400 Balance -290 - Medications Medications: Current Medications Docusate Sodium (Colace) 100 mg PO DAILY [facility] Last Admin: 08/19/17 10:45 Dose: 100 mg Enalapril Maleate (Vasotec) 2.5 mg PO BID [facility] Last Admin: 08/19/17 17:11 Dose: 2.5 mg Enoxaparin Sodium (Lovenox) 40 mg SC DAILY [facility] Last Admin: 08/19/17 10:48 Dose: 40 mg Ibuprofen (Motrin Tab) 600 mg PO Q6H PRN PRN Reason: Pain, moderate (4-7) Last Admin: 08/18/17 09:05 Dose: 600 mg Metformin HCl (Glucophage) 500 mg PO BID [facility] Last Admin: 08/19/17 17:10 Dose: 500 mg Metoprolol Succinate (Toprol Xl) 25 mg PO BID [facility] Last Admin: 08/19/17 17:14 Dose: 25 mg Moxifloxacin HCl (Avelox) 400 mg PO Q24H [facility] Last Admin: 08/18/17 21:10 Dose: 400 mg Oseltamivir Phosphate (Tamiflu Cap) 75 mg PO BID [facility] Stop: 08/22/17 19:55 Last Admin: 08/19/17 17:10 Dose: 75 mg Pantoprazole Sodium (Protonix Ec Tab) 40 mg PO DAILY [facility] Last Admin: 08/19/17 10:44 Dose: 40 mg - Labs Labs: 08/18/17 07:44 08/19/17 13:59 - Constitutional Appears: Well - Head Exam Head Exam: ATRAUMATIC, NORMAL INSPECTION, NORMOCEPHALIC - Eye Exam Eye Exam: EOMI, Normal appearance, PERRL Pupil Exam: NORMAL ACCOMODATION, PERRL - ENT Exam ENT Exam: Mucous Membranes Moist, Normal Exam - Neck Exam Neck Exam: Full ROM, Normal Inspection. absent: Lymphadenopathy - Respiratory Exam Respiratory Exam: Decreased Breath Sounds - Cardiovascular Exam Cardiovascular Exam: REGULAR RHYTHM, +S1, +S2 - GI/Abdominal Exam GI & Abdominal Exam: Soft, Diminished Bowel Sounds - Rectal Exam Rectal Exam: Deferred
[2017-08-20 07:35] LABS: BLOOD UREA NITROGEN 11 mg/dL (7-17); CALCIUM 8.4 mg/dl (8.6-10.4); GFR AFRICAN-AMERICAN > 60; GFR NON-AFRICAN AMERICAN > 60
[2017-08-20 07:46] LABS: BASO % 0.5 % (0.0-2.0); HEMOGLOBIN 13.3 g/dL (11.0-16.0); LYMPH % 24.1 % (20.0-40.0); MEAN CORPUSCULAR HEMOGLOBIN 31.6 pg (27.0-31.0); MEAN CORPUSCULAR HGB CONC 34.8 g/dL (33.0-37.0); MEAN PLATELET VOLUME 7.6 fL (7.2-11.7); MONO # 0.5 K/uL (0.0-0.8); MONO % 11.1 % (0.0-10.0); NEUT # 2.7 K/uL (1.8-7.0); NEUT % 63.3 % (50.0-75.0); RBC 4.2 Mil/uL (3.80-5.20); RED CELL DISTRIBUTION WIDTH 12.6 % (11.5-14.5)
[2017-08-20 07:48] LABS: WHITE BLOOD COUNT 4.2 K/uL (4.8-10.8)
[2017-08-20] MEDS: Pantoprazole 40 mg EC Tab PO SCH (10:49)
[2017-08-20] MEDS: Enoxaparin 40 mg Syringe SC SCH (10:50)
[2017-08-20] MEDS: Metoprolol Succinate 25 mg XL Tab PO SCH ×2 (10:57→18:58)
--- NOTE | 2017-08-20 11:41 | CP.PCM.PN ---
Subjective - Date & Time of Evaluation Date of Evaluation: 08/20/17 Time of Evaluation: 11:38 - Subjective Subjective: pt seen and examined chart reviewed bp acceptable, afebrile pt c/o pain rt side of head, asking for tylenol no n/v/d/sob/cp/dizziness/cough/fevers/chills/rash Objective - Vital Signs/Intake and Output Vital Signs (last 24 hours): Temp Pulse Resp BP Pulse Ox 98.1 F 86 18 147/83 97 08/20/17 08:00 08/20/17 08:00 08/20/17 08:00 08/20/17 10:51 08/20/17 08:00 Intake and Output: 08/20/17 08/20/17 06:59 18:59 Output Total 200 Balance -200 - Medications Medications: Current Medications Calcium/Vitamin D (Oyster Shell Calcium/Vitamin D 500 Mg-200 Iu) 1 tab PO DAILY [facility] Docusate Sodium (Colace) 100 mg PO DAILY [facility] Last Admin: 08/20/17 10:50 Dose: 100 mg Enalapril Maleate (Vasotec) 2.5 mg PO BID [facility] Last Admin: 08/20/17 10:51 Dose: 2.5 mg Enoxaparin Sodium (Lovenox) 40 mg SC DAILY [facility] Last Admin: 08/20/17 10:50 Dose: 40 mg Hydroxychloroquine Sulfate (Plaquenil) 200 mg PO BID [facility] Ibuprofen (Motrin Tab) 600 mg PO Q6H PRN PRN Reason: Pain, moderate (4-7) Last Admin: 08/18/17 09:05 Dose: 600 mg Metformin HCl (Glucophage) 500 mg PO BID [facility] Last Admin: 08/20/17 10:49 Dose: 500 mg Metoprolol Succinate (Toprol Xl) 25 mg PO BID [facility] Last Admin: 08/20/17 10:57 Dose: 25 mg Moxifloxacin HCl (Avelox) 400 mg PO Q24H [facility] Last Admin: 08/19/17 20:51 Dose: 400 mg Oseltamivir Phosphate (Tamiflu Cap) 75 mg PO BID [facility] Stop: 08/22/17 19:55 Last Admin: 08/20/17 11:06 Dose: 75 mg Pantoprazole Sodium (Protonix Ec Tab) 40 mg PO DAILY [facility] Last Admin: 08/20/17 10:49 Dose: 40 mg - Labs Labs: 08/20/17 07:02 08/20/17 07:02 - Constitutional Appears: Non-toxic, No Acute Distress - Head Exam Head Exam: NORMAL INSPECTION - Eye Exam Eye Exam: Normal appearance, PERRL Pupil Exam: PERRL - ENT Exam ENT Exam: Mucous Membranes Moist, Normal Exam - Neck Exam Neck Exam: Full ROM, Normal Inspection - Respiratory Exam Respiratory Exam: Clear to Ausculation Bilateral, NORMAL BREATHING PATTERN - Cardiovascular Exam Cardiovascular Exam: REGULAR RHYTHM, RRR - GI/Abdominal Exam GI & Abdominal Exam: Distended, Soft - Extremities Exam Extremities Exam: Normal Inspection - Neurological Exam Neurological Exam: Alert, Awake, Oriented x3 - Psychiatric Exam Psychiatric exam: Normal Affect, Normal Mood - Skin Skin Exam: Dry, Normal Color, Warm Assessment and Plan (1) Dehydration Status: Acute (2) Hypokalemia Status: Acute (3) Hyponatremia Status: Acute (4) Influenza A Status: Acute (5) Chest discomfort Status: Acute - Assessment and Plan (Free Text) Assessment: # hx of SLE # htn # influenza # proteus UTI # hyponatremia plan: check urine na, osm. fluid restriction. encourage protein intake consider switching to cipro for uti maintain low dose ACEI. no proteinuria/hematuria
[2017-08-20] MEDS: Calcium-Vit D 500 mg-200 Units Tab UD PO SCH (13:42)
--- NOTE | 2017-08-20 18:00 | CP.PCM.PN ---
Subjective - Date & Time of Evaluation Date of Evaluation: 08/20/17 Time of Evaluation: 08:00 - Subjective Subjective: no fever alert less cough recc pulm eval Objective - Vital Signs/Intake and Output Vital Signs (last 24 hours): Temp Pulse Resp BP Pulse Ox 98.1 F 86 18 147/83 97 08/20/17 08:00 08/20/17 08:00 08/20/17 08:00 08/20/17 10:51 08/20/17 08:00 Intake and Output: 08/20/17 08/20/17 06:59 18:59 Output Total 200 Balance -200 - Medications Medications: Current Medications Calcium/Vitamin D (Oyster Shell Calcium/Vitamin D 500 Mg-200 Iu) 1 tab PO DAILY [facility] Last Admin: 08/20/17 13:42 Dose: 1 tab Docusate Sodium (Colace) 100 mg PO DAILY [facility] Last Admin: 08/20/17 10:50 Dose: 100 mg Enalapril Maleate (Vasotec) 2.5 mg PO BID [facility] Last Admin: 08/20/17 10:51 Dose: 2.5 mg Enoxaparin Sodium (Lovenox) 40 mg SC DAILY [facility] Last Admin: 08/20/17 10:50 Dose: 40 mg Hydroxychloroquine Sulfate (Plaquenil) 200 mg PO BID [facility] Last Admin: 08/20/17 13:41 Dose: 200 mg Ibuprofen (Motrin Tab) 600 mg PO Q6H PRN PRN Reason: Pain, moderate (4-7) Last Admin: 08/18/17 09:05 Dose: 600 mg Metformin HCl (Glucophage) 500 mg PO BID [facility] Last Admin: 08/20/17 10:49 Dose: 500 mg Metoprolol Succinate (Toprol Xl) 25 mg PO BID [facility] Last Admin: 08/20/17 10:57 Dose: 25 mg Moxifloxacin HCl (Avelox) 400 mg PO Q24H [facility] Last Admin: 08/19/17 20:51 Dose: 400 mg Oseltamivir Phosphate (Tamiflu Cap) 75 mg PO BID [facility] Stop: 08/22/17 19:55 Last Admin: 08/20/17 11:06 Dose: 75 mg Pantoprazole Sodium (Protonix Ec Tab) 40 mg PO DAILY [facility] Last Admin: 08/20/17 10:49 Dose: 40 mg - Labs Labs: 08/20/17 07:02 08/20/17 07:02 - Constitutional Appears: Non-toxic, Chronically Ill - Head Exam Head Exam: NORMOCEPHALIC - Eye Exam Eye Exam: PERRL. absent: Scleral icterus - ENT Exam ENT Exam: Mucous Membranes Dry - Neck Exam Neck Exam: absent: Lymphadenopathy - Respiratory Exam Respiratory Exam: Decreased Breath Sounds - Cardiovascular Exam Cardiovascular Exam: REGULAR RHYTHM - GI/Abdominal Exam GI & Abdominal Exam: Soft. absent: Tenderness - Rectal Exam Rectal Exam: Deferred - Exam Exam: NORMAL INSPECTION - Extremities Exam Extremities Exam: absent: Pedal Edema - Back Exam Back Exam: absent: CVA tenderness (L), CVA tenderness (R) - Neurological Exam Neurological Exam: Alert, Awake, Oriented x3 - Psychiatric Exam Psychiatric exam: Normal Mood - Skin Skin Exam: Dry Assessment and Plan (1) Dehydration Status: Acute (2) Dehydration Status: Acute (3) Hyponatremia Status: Acute (4) Influenza A Status: Acute (5) Chest pain Status: Acute (6) Upper respiratory infection Status: Acute (7) Viral syndrome Status: Acute (8) Diabetes type 2, controlled Status: Chronic (9) HTN (hypertension) Status: Chronic (10) Hypercholesteremia Status: Chronic (11) Lupus Status: Chronic
[2017-08-20 22:53] LABS: OSMOLALITY,URINE 284 mosm/kg (300-1000)
[2017-08-21] MEDS: Enoxaparin 40 mg Syringe SC SCH (10:52)
[2017-08-21] MEDS: Calcium-Vit D 500 mg-200 Units Tab UD PO SCH (10:53)
[2017-08-21] MEDS: Pantoprazole 40 mg EC Tab PO SCH (10:53)
[2017-08-21] MEDS: Metoprolol Succinate 25 mg XL Tab PO SCH ×2 (10:55→18:50)
--- NOTE | 2017-08-21 17:01 | CP.PCM.PN ---
Subjective - Date & Time of Evaluation Date of Evaluation: 08/21/17 Time of Evaluation: 16:58 - Subjective Subjective: c/o facial pain discussed decreasing water intake no back pain no chest pain no sob no nausea no rash no cough no vomiting no diarrhea normal u/o Objective - Vital Signs/Intake and Output Vital Signs (last 24 hours): Temp Pulse Resp BP Pulse Ox 99.2 F 75 20 129/80 96 08/21/17 08:37 08/21/17 08:37 08/21/17 08:37 08/21/17 10:53 08/21/17 08:37 Intake and Output: 08/21/17 08/21/17 06:59 18:59 Intake Total 120 Balance 120 - Medications Medications: Current Medications Calcium/Vitamin D (Oyster Shell Calcium/Vitamin D 500 Mg-200 Iu) 1 tab PO DAILY [facility] Last Admin: 08/21/17 10:53 Dose: 1 tab Docusate Sodium (Colace) 100 mg PO DAILY [facility] Last Admin: 08/21/17 10:53 Dose: 100 mg Enalapril Maleate (Vasotec) 2.5 mg PO BID [facility] Last Admin: 08/21/17 10:53 Dose: 2.5 mg Enoxaparin Sodium (Lovenox) 40 mg SC DAILY [facility] Last Admin: 08/21/17 10:52 Dose: 40 mg Hydroxychloroquine Sulfate (Plaquenil) 200 mg PO BID [facility] Last Admin: 08/21/17 10:54 Dose: 200 mg Ibuprofen (Motrin Tab) 600 mg PO Q6H PRN PRN Reason: Pain, moderate (4-7) Last Admin: 08/18/17 09:05 Dose: 600 mg Metformin HCl (Glucophage) 500 mg PO BID [facility] Last Admin: 08/21/17 10:53 Dose: 500 mg Metoprolol Succinate (Toprol Xl) 25 mg PO BID [facility] Last Admin: 08/21/17 10:55 Dose: 25 mg Moxifloxacin HCl (Avelox) 400 mg PO Q24H [facility] Last Admin: 08/20/17 20:47 Dose: 400 mg Oseltamivir Phosphate (Tamiflu Cap) 75 mg PO BID [facility] Stop: 08/22/17 19:55 Last Admin: 08/21/17 10:53 Dose: 75 mg Pantoprazole Sodium (Protonix Ec Tab) 40 mg PO DAILY [facility] Last Admin: 08/21/17 10:53 Dose: 40 mg - Labs Labs: 08/20/17 07:02 08/20/17 07:02 - Constitutional Appears: Non-toxic, No Acute Distress - Head Exam Head Exam: ATRAUMATIC, NORMAL INSPECTION - Eye Exam Eye Exam: EOMI, Normal appearance - ENT Exam ENT Exam: Mucous Membranes Moist - Neck Exam Neck Exam: Full ROM. absent: Lymphadenopathy - Respiratory Exam Respiratory Exam: Clear to Ausculation Bilateral. absent: Accessory Muscle Use - Cardiovascular Exam Cardiovascular Exam: REGULAR RHYTHM. absent: Rubs - GI/Abdominal Exam GI & Abdominal Exam: Soft. absent: Tenderness - Extremities Exam Extremities Exam: absent: Pedal Edema - Neurological Exam Neurological Exam: Alert, Awake Assessment and Plan - Assessment and Plan (Free Text) Assessment: hyponatremia, probable excessive water intake in setting of low urine osmolarity restrict free water labs in am
[2017-08-21 17:22] LABS: ALB/GLOB RATIO 1.3 (1.0-2.1); ALBUMIN 3.6 g/dL (3.5-5.0); ALT/SGPT 38 U/L (9-52); AST/SGOT 36 U/L (14-36); BLOOD UREA NITROGEN 11 mg/dL (7-17); GFR AFRICAN-AMERICAN > 60; GFR NON-AFRICAN AMERICAN > 60; URIC ACID 3.2 mg/dL (2.2-7.5)
--- NOTE | 2017-08-21 18:51 | CP.PCM.PN ---
Subjective - Date & Time of Evaluation Date of Evaluation: 08/21/17 Time of Evaluation: 12:00 - Subjective Subjective: clinically same Objective - Vital Signs/Intake and Output Vital Signs (last 24 hours): Temp Pulse Resp BP Pulse Ox 98.3 F 100 H 20 128/77 97 08/21/17 15:25 08/21/17 15:25 08/21/17 15:25 08/21/17 15:25 08/21/17 15:25 Intake and Output: 08/21/17 08/21/17 06:59 18:59 Intake Total 120 Balance 120 - Medications Medications: Current Medications Calcium/Vitamin D (Oyster Shell Calcium/Vitamin D 500 Mg-200 Iu) 1 tab PO DAILY [facility] Last Admin: 08/21/17 10:53 Dose: 1 tab Docusate Sodium (Colace) 100 mg PO DAILY [facility] Last Admin: 08/21/17 10:53 Dose: 100 mg Enalapril Maleate (Vasotec) 2.5 mg PO BID [facility] Last Admin: 08/21/17 10:53 Dose: 2.5 mg Enoxaparin Sodium (Lovenox) 40 mg SC DAILY [facility] Last Admin: 08/21/17 10:52 Dose: 40 mg Hydroxychloroquine Sulfate (Plaquenil) 200 mg PO BID [facility] Last Admin: 08/21/17 10:54 Dose: 200 mg Ibuprofen (Motrin Tab) 600 mg PO Q6H PRN PRN Reason: Pain, moderate (4-7) Last Admin: 08/18/17 09:05 Dose: 600 mg Metformin HCl (Glucophage) 500 mg PO BID [facility] Last Admin: 08/21/17 10:53 Dose: 500 mg Metoprolol Succinate (Toprol Xl) 25 mg PO BID [facility] Last Admin: 08/21/17 10:55 Dose: 25 mg Moxifloxacin HCl (Avelox) 400 mg PO Q24H [facility] Last Admin: 08/20/17 20:47 Dose: 400 mg Oseltamivir Phosphate (Tamiflu Cap) 75 mg PO BID [facility] Stop: 08/22/17 19:55 Last Admin: 08/21/17 10:53 Dose: 75 mg Pantoprazole Sodium (Protonix Ec Tab) 40 mg PO DAILY [facility] Last Admin: 08/21/17 10:53 Dose: 40 mg - Labs Labs: 08/20/17 07:02 08/21/17 16:53 - Constitutional Appears: Well - Head Exam Head Exam: ATRAUMATIC, NORMAL INSPECTION, NORMOCEPHALIC - Eye Exam Eye Exam: EOMI, Normal appearance, PERRL Pupil Exam: NORMAL ACCOMODATION, PERRL - ENT Exam ENT Exam: Mucous Membranes Moist, Normal Exam - Neck Exam Neck Exam: Full ROM, Normal Inspection. absent: Lymphadenopathy - Respiratory Exam Respiratory Exam: Decreased Breath Sounds - Cardiovascular Exam Cardiovascular Exam: REGULAR RHYTHM, +S1, +S2 - GI/Abdominal Exam GI & Abdominal Exam: Soft, Diminished Bowel Sounds - Rectal Exam Rectal Exam: Deferred
[2017-08-22] MEDS: Pantoprazole 40 mg EC Tab PO SCH (10:34)
[2017-08-22] MEDS: Metoprolol Succinate 25 mg XL Tab PO SCH ×2 (10:34→17:19)
[2017-08-22] MEDS: Enoxaparin 40 mg Syringe SC SCH (10:35)
[2017-08-22] MEDS: Calcium-Vit D 500 mg-200 Units Tab UD PO SCH (10:35)
--- NOTE | 2017-08-22 12:26 | CP.PCM.PN ---
Subjective - Date & Time of Evaluation Date of Evaluation: 08/22/17 Time of Evaluation: 12:24 - Subjective Subjective: no complaints Na improved eager to go home no fever no chills no n/v,diarrha no rash normal u/o no edema no chest pain no cough no headache Objective - Vital Signs/Intake and Output Vital Signs (last 24 hours): Temp Pulse Resp BP Pulse Ox 98.6 F 75 18 144/76 96 08/22/17 07:45 08/22/17 08:15 08/22/17 07:45 08/22/17 10:34 08/22/17 07:45 Intake and Output: 08/22/17 08/22/17 06:59 18:59 Intake Total 100 Balance 100 - Medications Medications: Current Medications Calcium/Vitamin D (Oyster Shell Calcium/Vitamin D 500 Mg-200 Iu) 1 tab PO DAILY [facility] Last Admin: 08/22/17 10:35 Dose: 1 tab Docusate Sodium (Colace) 100 mg PO DAILY [facility] Last Admin: 08/22/17 10:34 Dose: 100 mg Enalapril Maleate (Vasotec) 2.5 mg PO BID [facility] Last Admin: 08/22/17 10:34 Dose: 2.5 mg Enoxaparin Sodium (Lovenox) 40 mg SC DAILY [facility] Last Admin: 08/22/17 10:35 Dose: 40 mg Hydroxychloroquine Sulfate (Plaquenil) 200 mg PO BID [facility] Last Admin: 08/22/17 10:34 Dose: 200 mg Ibuprofen (Motrin Tab) 600 mg PO Q6H PRN PRN Reason: Pain, moderate (4-7) Last Admin: 08/18/17 09:05 Dose: 600 mg Metformin HCl (Glucophage) 500 mg PO BID [facility] Last Admin: 08/22/17 10:34 Dose: 500 mg Metoprolol Succinate (Toprol Xl) 25 mg PO BID [facility] Last Admin: 08/22/17 10:34 Dose: 25 mg Moxifloxacin HCl (Avelox) 400 mg PO Q24H [facility] Last Admin: 08/21/17 23:08 Dose: 400 mg Oseltamivir Phosphate (Tamiflu Cap) 75 mg PO BID [facility] Stop: 08/22/17 19:55 Last Admin: 08/22/17 10:34 Dose: 75 mg Pantoprazole Sodium (Protonix Ec Tab) 40 mg PO DAILY [facility] Last Admin: 08/22/17 10:34 Dose: 40 mg - Labs Labs: 08/20/17 07:02 08/21/17 16:53 - Constitutional Appears: Non-toxic - Head Exam Head Exam: ATRAUMATIC - Eye Exam Eye Exam: EOMI, Normal appearance - ENT Exam ENT Exam: Mucous Membranes Moist - Neck Exam Neck Exam: Full ROM. absent: Lymphadenopathy - Respiratory Exam Respiratory Exam: Clear to Ausculation Bilateral. absent: Accessory Muscle Use - Cardiovascular Exam Cardiovascular Exam: REGULAR RHYTHM. absent: Rubs - Extremities Exam Extremities Exam: Full ROM. absent: Pedal Edema - Neurological Exam Neurological Exam: Alert, Awake - Psychiatric Exam Psychiatric exam: Normal Affect Assessment and Plan - Assessment and Plan (Free Text) Assessment: stable hyponatremia, pt instructed on fluid restriction ok for discharge from renal
--- NOTE | 2017-08-22 18:07 | CP.PCM.PN ---
Subjective - Date & Time of Evaluation Date of Evaluation: 08/22/17 Time of Evaluation: 11:40 - Subjective Subjective: clinically same Objective - Vital Signs/Intake and Output Vital Signs (last 24 hours): Temp Pulse Resp BP Pulse Ox 98.6 F 72 20 151/78 H 98 08/22/17 15:49 08/22/17 15:49 08/22/17 15:49 08/22/17 17:18 08/22/17 15:49 Intake and Output: 08/22/17 08/22/17 06:59 18:59 Intake Total 100 Balance 100 - Medications Medications: Current Medications Calcium/Vitamin D (Oyster Shell Calcium/Vitamin D 500 Mg-200 Iu) 1 tab PO DAILY [facility] Last Admin: 08/22/17 10:35 Dose: 1 tab Docusate Sodium (Colace) 100 mg PO DAILY [facility] Last Admin: 08/22/17 10:34 Dose: 100 mg Enalapril Maleate (Vasotec) 2.5 mg PO BID [facility] Last Admin: 08/22/17 17:18 Dose: 2.5 mg Enoxaparin Sodium (Lovenox) 40 mg SC DAILY [facility] Last Admin: 08/22/17 10:35 Dose: 40 mg Hydroxychloroquine Sulfate (Plaquenil) 200 mg PO BID [facility] Last Admin: 08/22/17 17:19 Dose: 200 mg Ibuprofen (Motrin Tab) 600 mg PO Q6H PRN PRN Reason: Pain, moderate (4-7) Last Admin: 08/18/17 09:05 Dose: 600 mg Metformin HCl (Glucophage) 500 mg PO BID [facility] Last Admin: 08/22/17 17:19 Dose: Not Given Metoprolol Succinate (Toprol Xl) 25 mg PO BID [facility] Last Admin: 08/22/17 17:19 Dose: 25 mg Moxifloxacin HCl (Avelox) 400 mg PO Q24H [facility] Last Admin: 08/21/17 23:08 Dose: 400 mg Oseltamivir Phosphate (Tamiflu Cap) 75 mg PO BID [facility] Stop: 08/22/17 19:55 Last Admin: 08/22/17 17:20 Dose: 75 mg Pantoprazole Sodium (Protonix Ec Tab) 40 mg PO DAILY [facility] Last Admin: 08/22/17 10:34 Dose: 40 mg - Labs Labs: 08/20/17 07:02 08/21/17 16:53 - Constitutional Appears: Well - Head Exam Head Exam: ATRAUMATIC, NORMAL INSPECTION, NORMOCEPHALIC - Eye Exam Eye Exam: EOMI, Normal appearance, PERRL Pupil Exam: NORMAL ACCOMODATION, PERRL - ENT Exam ENT Exam: Mucous Membranes Moist, Normal Exam - Neck Exam Neck Exam: Full ROM, Normal Inspection. absent: Lymphadenopathy - Respiratory Exam Respiratory Exam: Decreased Breath Sounds - Cardiovascular Exam Cardiovascular Exam: REGULAR RHYTHM, +S1, +S2 - GI/Abdominal Exam GI & Abdominal Exam: Soft, Diminished Bowel Sounds - Rectal Exam Rectal Exam: Deferred
[2017-08-23 09:02] VITALS: BP 131/78; PULSE 70; RESP 18; TEMP 98.1; O2SAT 96
[2017-08-23] MEDS: Metoprolol Succinate 25 mg XL Tab PO SCH (10:01)
[2017-08-23] MEDS: Calcium-Vit D 500 mg-200 Units Tab UD PO SCH (10:01)
[2017-08-23] MEDS: Enoxaparin 40 mg Syringe SC SCH (10:01)
[2017-08-23] MEDS: Pantoprazole 40 mg EC Tab PO SCH (10:01)
--- NOTE | 2017-08-23 13:59 | CP.PCM.PN ---
Subjective - Date & Time of Evaluation Date of Evaluation: 08/23/17 Time of Evaluation: 13:20 - Subjective Subjective: clinically same Objective - Vital Signs/Intake and Output Vital Signs (last 24 hours): Temp Pulse Resp BP Pulse Ox 98.1 F 70 18 131/78 96 08/23/17 08:00 08/23/17 08:00 08/23/17 08:00 08/23/17 10:01 08/23/17 08:00 - Medications Medications: Current Medications Calcium/Vitamin D (Oyster Shell Calcium/Vitamin D 500 Mg-200 Iu) 1 tab PO DAILY [facility] Last Admin: 08/23/17 10:01 Dose: 1 tab Docusate Sodium (Colace) 100 mg PO DAILY [facility] Last Admin: 08/23/17 10:02 Dose: 100 mg Enalapril Maleate (Vasotec) 2.5 mg PO BID [facility] Last Admin: 08/23/17 10:01 Dose: 2.5 mg Enoxaparin Sodium (Lovenox) 40 mg SC DAILY [facility] Last Admin: 08/23/17 10:01 Dose: 40 mg Hydroxychloroquine Sulfate (Plaquenil) 200 mg PO BID [facility] Last Admin: 08/23/17 10:01 Dose: 200 mg Ibuprofen (Motrin Tab) 600 mg PO Q6H PRN PRN Reason: Pain, moderate (4-7) Last Admin: 08/18/17 09:05 Dose: 600 mg Metformin HCl (Glucophage) 500 mg PO BID [facility] Last Admin: 08/23/17 10:02 Dose: 500 mg Metoprolol Succinate (Toprol Xl) 25 mg PO BID [facility] Last Admin: 08/23/17 10:01 Dose: 25 mg Moxifloxacin HCl (Avelox) 400 mg PO Q24H [facility] Last Admin: 08/22/17 20:52 Dose: 400 mg Pantoprazole Sodium (Protonix Ec Tab) 40 mg PO DAILY [facility] Last Admin: 08/23/17 10:01 Dose: 40 mg - Labs Labs: 08/20/17 07:02 08/21/17 16:53 - Constitutional Appears: Well - Head Exam Head Exam: ATRAUMATIC, NORMAL INSPECTION, NORMOCEPHALIC - Eye Exam Eye Exam: EOMI, Normal appearance, PERRL Pupil Exam: NORMAL ACCOMODATION, PERRL - ENT Exam ENT Exam: Mucous Membranes Moist, Normal Exam - Neck Exam Neck Exam: Full ROM, Normal Inspection. absent: Lymphadenopathy - Respiratory Exam Respiratory Exam: Decreased Breath Sounds - Cardiovascular Exam Cardiovascular Exam: REGULAR RHYTHM, +S1, +S2 - GI/Abdominal Exam GI & Abdominal Exam: Soft, Diminished Bowel Sounds - Rectal Exam Rectal Exam: Deferred
--- NOTE | 2017-08-23 15:28 | CP.PCM.PN ---
Subjective - Date & Time of Evaluation Date of Evaluation: 08/23/17 Time of Evaluation: 07:00 - Subjective Subjective: improving no fever cleared for discharge Objective - Vital Signs/Intake and Output Vital Signs (last 24 hours): Temp Pulse Resp BP Pulse Ox 98.1 F 70 18 131/78 96 08/23/17 08:00 08/23/17 08:00 08/23/17 08:00 08/23/17 10:01 08/23/17 08:00 Intake and Output: 08/23/17 08/23/17 06:59 18:59 Intake Total 600 Balance 600 - Medications Medications: Current Medications Calcium/Vitamin D (Oyster Shell Calcium/Vitamin D 500 Mg-200 Iu) 1 tab PO DAILY [facility] Last Admin: 08/23/17 10:01 Dose: 1 tab Docusate Sodium (Colace) 100 mg PO DAILY [facility] Last Admin: 08/23/17 10:02 Dose: 100 mg Enalapril Maleate (Vasotec) 2.5 mg PO BID [facility] Last Admin: 08/23/17 10:01 Dose: 2.5 mg Enoxaparin Sodium (Lovenox) 40 mg SC DAILY [facility] Last Admin: 08/23/17 10:01 Dose: 40 mg Hydroxychloroquine Sulfate (Plaquenil) 200 mg PO BID [facility] Last Admin: 08/23/17 10:01 Dose: 200 mg Ibuprofen (Motrin Tab) 600 mg PO Q6H PRN PRN Reason: Pain, moderate (4-7) Last Admin: 08/18/17 09:05 Dose: 600 mg Metformin HCl (Glucophage) 500 mg PO BID [facility] Last Admin: 08/23/17 10:02 Dose: 500 mg Metoprolol Succinate (Toprol Xl) 25 mg PO BID [facility] Last Admin: 08/23/17 10:01 Dose: 25 mg Moxifloxacin HCl (Avelox) 400 mg PO Q24H [facility] Last Admin: 08/22/17 20:52 Dose: 400 mg Pantoprazole Sodium (Protonix Ec Tab) 40 mg PO DAILY [facility] Last Admin: 08/23/17 10:01 Dose: 40 mg - Labs Labs: 08/20/17 07:02 08/21/17 16:53 - Constitutional Appears: Non-toxic, Chronically Ill - Head Exam Head Exam: NORMOCEPHALIC - Eye Exam Eye Exam: PERRL. absent: Scleral icterus - ENT Exam ENT Exam: Mucous Membranes Dry - Neck Exam Neck Exam: absent: Lymphadenopathy - Respiratory Exam Respiratory Exam: Decreased Breath Sounds - Cardiovascular Exam Cardiovascular Exam: REGULAR RHYTHM, +S1, +S2 - GI/Abdominal Exam GI & Abdominal Exam: Distended, Soft. absent: Tenderness - Rectal Exam Rectal Exam: Deferred Assessment and Plan (1) Dehydration Status: Acute (2) Dehydration Status: Acute (3) Hyponatremia Status: Acute (4) Influenza A Status: Acute (5) Chest pain Status: Acute (6) Upper respiratory infection Status: Acute (7) Viral syndrome Status: Acute (8) Diabetes type 2, controlled Status: Chronic (9) HTN (hypertension) Status: Chronic (10) Hypercholesteremia Status: Chronic (11) Lupus Status: Chronic
== END 2017-08-23 17:23 | disposition home or self-care (01) | DRG 68 ==
LOC: C.ER 09:09 → C.9E 14:35 → C.6T 08-18 12:58
PROVIDERS: ADMIT Internal Medicine Nephrology; ATTEND Internal Medicine Nephrology
DX: J10.1 Influenza due to other identified influenza virus with other respiratory manifestations (principal); M32.9 Systemic lupus erythematosus, unspecified; E83.51 Hypocalcemia; E87.1 Hypo-osmolality and hyponatremia; E86.0 Dehydration; E87.6 Hypokalemia; B96.4 Proteus (mirabilis) (morganii) as the cause of diseases classified elsewhere; N39.0 Urinary tract infection, site not specified; E11.9 Type 2 diabetes mellitus without complications; E78.00 Pure hypercholesterolemia, unspecified; I10 Essential (primary) hypertension; E78.5 Hyperlipidemia, unspecified

== ENCOUNTER 2017-10-20 10:11 | Emergency (ER) | payer MEDICAID ==
[2017-10-20 10:58] LABS: BASO % 0.5 % (0.0-2.0); EOS # 0.1 K/uL (0.0-0.7); EOS % 0.7 % (0.0-4.0); HEMOGLOBIN 13.4 g/dL (11.0-16.0); LYMPH # 0.7 K/uL (1.0-4.3); LYMPH % 8.7 % (20.0-40.0); MEAN CELL VOLUME 92.6 fL (81.0-99.0); MEAN CORPUSCULAR HEMOGLOBIN 32.3 pg (27.0-31.0); MEAN CORPUSCULAR HGB CONC 34.9 g/dL (33.0-37.0); MEAN PLATELET VOLUME 7.1 fL (7.2-11.7); MONO # 0.3 K/uL (0.0-0.8); MONO % 3.7 % (0.0-10.0); NEUT # 6.5 K/uL (1.8-7.0); NEUT % 86.4 % (50.0-75.0); PLATELET COUNT 270 K/uL (130-400); RBC 4.17 Mil/uL (3.80-5.20); RED CELL DISTRIBUTION WIDTH 13.7 % (11.5-14.5); WHITE BLOOD COUNT 7.6 K/uL (4.8-10.8)
[2017-10-20 11:20] LABS: ALB/GLOB RATIO 1.3 (1.0-2.1); ALBUMIN 3.9 g/dL (3.5-5.0); ALT/SGPT 22 U/L (9-52); AST/SGOT 30 U/L (14-36); BLOOD UREA NITROGEN 12 mg/dL (7-17); CALCIUM 8.9 mg/dl (8.6-10.4); GFR AFRICAN-AMERICAN > 60; GFR NON-AFRICAN AMERICAN > 60
[2017-10-20 11:36] LABS: BANDS 2 % (0-2); BASOPHIL 1 % (0-2); LYMPHOCYTE 8 % (20-40); MONOCYTE 2 % (0-10); NEUTROPHIL 87 % (50-75); PLATELET ESTIMATE NORMAL (NORMAL); TOTAL CELLS COUNTED 100
[2017-10-20 12:02] VITALS: RESP 18
--- NOTE | 2017-10-20 12:11 | C.PDOC ---
History Of Present Illness 62 y/o female with PMHx of HTN, DM and High cholesterol presents to ED with complaints of dizziness and headache since earlier today with associated nausea. Patient reports she is compliant with medications and states she had prior episode of similar symptoms that resolved on their own. Patient denies "worse headache of life", trauma, vomiting, blurry vision or any other complaints at this time. Time Seen by Provider: 10/20/17 11:14 Chief Complaint (Nursing): Dizziness/Lightheaded History Per: Patient History/Exam Limitations: no limitations Onset/Duration Of Symptoms: Hrs Current Symptoms Are (Timing): Still Present Past Medical History Reviewed: Historical Data, Nursing Documentation, Vital Signs Vital Signs: Last Vital Signs Temp 97.9 F 10/20/17 13:51 Pulse 63 10/20/17 13:51 Resp 18 10/20/17 13:51 BP 149/78 10/20/17 13:51 Pulse Ox 96 10/20/17 13:51 - Medical History PMH: Diabetes, HTN, Hypercholesterolemia Surgical History: No Surg Hx - [facility] Procedures ESOPHAGOGASTRODUODENOSCOPY [EGD] W/CLOSED BIOPSY (09/12/04) Family History: States: No Known Family Hx - Social History Hx Tobacco Use: No Hx Alcohol Use: No Hx Substance Use: No - Immunization History Hx Tetanus Toxoid Vaccination: No Hx Influenza Vaccination: Yes Hx Pneumococcal Vaccination: No Review Of Systems Constitutional: Negative for: Fever, Chills Eyes: Negative for: Vision Change Gastrointestinal: Positive for: Nausea. Negative for: Vomiting Skin: Negative for: Rash Neurological: Positive for: Headache, Dizziness. Negative for: Weakness, Numbness Physical Exam - Physical Exam Appears: Non-toxic, No Acute Distress Skin: Warm, Dry, No Rash Head: Atraumatic, Normacephalic Eye(s): right: Normal Inspection, left: Other (Nystagmus horizontal ) Ear(s): Bilateral: Normal Oral Mucosa: Moist Neck: Normal ROM, Supple Cardiovascular: Rhythm Regular Respiratory: Normal Breath Sounds, No Rales, No Rhonchi, No Wheezing Gastrointestinal/Abdominal: Soft, No Tenderness, No Guarding, No Rebound Extremity: Normal ROM, Capillary Refill (<2 seconds) Neurological/Psych: Oriented x3, Normal Speech, Normal Cognition, Normal Cranial Nerves, Normal Motor, Normal Sensation, Other (No pronator drift, SIMON intact, Finger nose intact) Gait: Steady ED Course And Treatment - Laboratory Results Result Diagrams: 10/20/17 10:54 10/20/17 10:54 O2 Sat by Pulse Oximetry: 98 (RA) Progress Note: CXR, ECG, CT Scan head ordered Medical Decision Making Medical Decision Making: pt feeling completely well at thils time, reports headache ad dizziness have resolved, pt currently eating and tolerating food. pt does have a neurologist and adivsed to follow up lito; ct head today recommends mri for eval of chronic mass seen on ct scan; results given to patient to bring to neurologist. Disposition Counseled Patient/Family Regarding: Diagnosis, Need For Followup, Rx Given - Disposition Disposition: HOME/ ROUTINE Disposition Time: 15:04 Condition: IMPROVED Additional Instructions: Please follow up with your neurologist and with your primary care doctor as soon as possible. Bring head ct results with you to doctor- recommend outpatient mri of brain. Take Meclizine and tylenol as prescribed. Return to ER for any worse symptoms. Prescriptions: Acetaminophen [Tylenol 325mg tab] 650 mg PO Q6 #30 tab Meclizine [Meclizine*] 25 mg PO Q6 #30 tab Instructions: Vertigo (a Type of Dizziness) (DC) Forms: [facility] (Nepalese), General Discharge Instructions - Clinical Impression Clinical Impression: Vertigo - PA / RUMPER / Resident Statement MD/DO has reviewed & agrees with the documentation as recorded. - Scribe Statement The provider has reviewed the documentation as recorded by the Malachi Johnston All medical record entries made by the Malachi were at my direction and personally dictated by me. I have reviewed the chart and agree that the record accurately reflects my personal performance of the history, physical exam, medical decision making, and the department course for this patient. I have also personally directed, reviewed, and agree with the discharge instructions and disposition.
--- NOTE | 2017-10-20 13:09 | RAD ---
HISTORY: DIZZINESS COMPARISON: 08/17/2017 FINDINGS: LUNGS: No active pulmonary disease. PLEURA: No significant pleural effusion identified, no pneumothorax apparent. CARDIOVASCULAR: No radiographic findings to suggest acute or significant cardiovascular disease. OSSEOUS STRUCTURES: No significant abnormalities. VISUALIZED UPPER ABDOMEN: Normal. OTHER FINDINGS: None. IMPRESSION: No active disease. No significant interval change compared to the prior examination(s).
--- NOTE | 2017-10-20 14:03 | CT ---
PROCEDURE: CT HEAD WITHOUT CONTRAST. HISTORY: dizziness COMPARISON: Unenhanced head CT 07/28/2016. TECHNIQUE: Axial computed tomography images were obtained through the head/brain without intravenous contrast. Radiation dose: Total exam DLP = 708.08 mGy-cm. This CT exam was performed using one or more of the following dose reduction techniques: Automated exposure control, adjustment of the mA and/or kV according to patient size, and/or use of iterative reconstruction technique. FINDINGS: HEMORRHAGE: No acute intracranial hemorrhage. BRAIN: Limited age-related neuro degenerative changes are reiterated comprised chronic microangiopathy and borderline diffuse cerebral atrophy. No suspicious extra-axial fluid collection in the interval. Midline brain anatomy remains unremarkable. No suspicious pattern to suggest acute or subacute brain infarction at this time. There is a 1.0 x 0.8 cm mildly hyperdense lesion reiterated add a abutting the inferior margins of the left tentorium probably representing a small benign meningioma. It does not appear dramatically changed in size in the interval. Greater characterization of this finding is recommended by MRI with and without contrast as previously recommended. VENTRICLES: Unremarkable. No hydrocephalus. CALVARIUM: Unremarkable. PARANASAL SINUSES: Unremarkable as visualized. No significant inflammatory changes. MASTOID AIR CELLS: Unremarkable as visualized. No inflammatory changes. OTHER FINDINGS: None. IMPRESSION: Stable unenhanced head CT. No suspicious pattern that would suggest brain infarction at this time. A small lesion measuring 1.0 cm is again seen abutting the inferior margins of the left tentorium potentially representing a benign meningioma. This does not appear grossly changed from prior head CT 07/28/2016 but follow-up MRI with and without contrast is recommended for complete characterization.
[2017-10-20 15:46] VITALS: BP 159/86; PULSE 69; TEMP 98.5; O2SAT 99
--- NOTE | 2017-10-22 12:33 | CARD ---
APPROVED REPORT EKG Measurement Heart [id number] [id number] <Conclusion> Normal sinus rhythm Normal ECG
== END 2017-10-20 15:46 | disposition home or self-care (01) ==
LOC: C.ER 10:11
DX: R42 Dizziness and giddiness (principal); I10 Essential (primary) hypertension; E78.00 Pure hypercholesterolemia, unspecified; E11.9 Type 2 diabetes mellitus without complications

== ENCOUNTER 2018-10-25 18:22 | Observation (INO) | payer MEDICARE, MEDICAID ==
[2018-10-25] MEDS ORDERED: Sodium Chloride 0.9% 1,000 ML IV ONE (18:54)
[2018-10-25] MEDS ORDERED: Sodium Chloride 0.9% 1,000 ML ONE (19:07)
--- NOTE | 2018-10-25 19:17 | C.PDOC ---
History Of Present Illness Patient is a 63 year old female who presents to the ED c/o colicky abdominal pain for the past 3 days. Patient also reports a mild headache and dizziness without falls. She denies taking any medications for her symptoms. She states t hat she east scantily and eats only small quantities of brown rice with her occasional meals. She drinks 2 large bottle of water /day to encourage urination. She denies any fever, chills, CP, or SOB. Time Seen by Provider: 10/25/18 18:47 Chief Complaint (Nursing): Abdominal Pain History Per: Patient History/Exam Limitations: no limitations Onset/Duration Of Symptoms: Days (3) Current Symptoms Are (Timing): Still Present Associated Symptoms: denies: Fever, Chills, Chest Pain Recent travel outside of the [place]: No Additional History Per: Patient Past Medical History Reviewed: Historical Data, Nursing Documentation, Vital Signs Vital Signs: Last Vital Signs Temp 97.9 F 10/25/18 18:49 Pulse 66 10/25/18 18:49 Resp 18 10/25/18 18:49 BP 162/91 H 10/25/18 18:49 Pulse Ox 97 10/25/18 18:49 - Medical History PMH: Diabetes, HTN, Hypercholesterolemia Denies: Chronic Kidney Disease Surgical History: No Surg Hx - [facility] Procedures ESOPHAGOGASTRODUODENOSCOPY [EGD] W/CLOSED BIOPSY (09/12/04) Family History: States: Unknown Family Hx - Social History Hx Tobacco Use: No Hx Alcohol Use: No Hx Substance Use: No - Immunization History Hx Tetanus Toxoid Vaccination: No Hx Influenza Vaccination: Yes Hx Pneumococcal Vaccination: No Review Of Systems Constitutional: Negative for: Fever, Chills Cardiovascular: Negative for: Chest Pain Respiratory: Negative for: Shortness of Breath Gastrointestinal: Positive for: Abdominal Pain (colicky) Physical Exam - Physical Exam Appears: Non-toxic, No Acute Distress, Other (moroccan woman) Skin: Normal Color, Warm, Dry Head: Atraumatic, Normacephalic Oral Mucosa: Moist Neck: Normal ROM Chest: Symmetrical Cardiovascular: Rhythm Regular, No Murmur Respiratory: Normal Breath Sounds, No Rales, No Rhonchi, No Wheezing Gastrointestinal/Abdominal: Other (dull to percussion, no epigastrium on right side, tympanic on left side. No Wong's or McBurney's) Extremity: Normal ROM Neurological/Psych: Oriented x3, Normal Speech, Normal Cranial Nerves, Normal Motor, Normal Sensation, Normal Reflexes ED Course And Treatment - Laboratory Results Result Diagrams: 10/25/18 20:08 10/25/18 20:08 Lab Interpretation: Abnormal (+ hyponatremia) O2 Sat by Pulse Oximetry: 97 (on RA) Pulse Ox Interpretation: Normal - Radiology CXR: Interpreted by Me CXR Interpretation: Yes: No Acute Disease - Other Rad abd x 2 X-Ray: Interpreted by Me (+FOS) Reevaluation Time: 21:18 - Physician Consult Information Outcome Of Conversation: [id number]: d/w Dr. Bridges, Hospitalist admitting for molina Parada to Obs Medical Decision Making Medical Decision Making: Plan: Labs Obstructive Series Urinalysis Toradol 30mg IVP IV Fluids consider tea and toast hyponatremia syndrome Consider head CT for baseline and slowly normalize and follow Sodium levels Disposition Doctor Will See Patient In The: Hospital Counseled Patient/Family Regarding: Studies Performed, Diagnosis - Disposition Disposition: HOSPITALIZED Disposition Time: 21:19 Condition: GOOD - Clinical Impression Clinical Impression: Abdominal pain, Headache, Hyponatremia - Scribe Statement The provider has reviewed the documentation as recorded by the Malachi Horta All medical record entries made by the Lesleyibsteve were at my direction and personally dictated by me. I have reviewed the chart and agree that the record accurately reflects my personal performance of the history, physical exam, medical decision making, and the department course for this patient. I have also personally directed, reviewed, and agree with the discharge instructions and disposition.
[2018-10-25 20:17] LABS: BASO % 0.5 % (0.0-2.0); EOS # 0.2 K/uL (0.0-0.7); EOS % 3.2 % (0.0-4.0); HEMOGLOBIN 13.1 g/dL (11.0-16.0); LYMPH # 1.5 K/uL (1.0-4.3); MEAN CELL VOLUME 92.1 fL (81.0-99.0); MEAN CORPUSCULAR HEMOGLOBIN 31.7 pg (27.0-31.0); MEAN CORPUSCULAR HGB CONC 34.4 g/dL (33.0-37.0); MEAN PLATELET VOLUME 7.6 fL (7.2-11.7); MONO # 0.4 K/uL (0.0-0.8); MONO % 6.2 % (0.0-10.0); NEUT # 4.1 K/uL (1.8-7.0); NEUT % 66.1 % (50.0-75.0); RBC 4.14 Mil/uL (3.80-5.20); RED CELL DISTRIBUTION WIDTH 12.5 % (11.5-14.5); WHITE BLOOD COUNT 6.3 K/uL (4.8-10.8)
[2018-10-25 20:51] LABS: ALB/GLOB RATIO 1.7 (1.0-2.1); ALBUMIN 3.8 g/dL (3.5-5.0); ALT/SGPT 17 U/L (9-52); AST/SGOT 31 U/L (14-36); BLOOD UREA NITROGEN 10 mg/dL (7-17); CALCIUM 8.6 mg/dl (8.6-10.4); GFR NON-AFRICAN AMERICAN > 60; LIPASE 233 U/L (23-300)
[2018-10-25 20:55] LABS: SQUAMOUS EPITHIAL < 1 /hpf (0-5); URINE BACTERIA OCC (<OCC); URINE BILIRUBIN NEGATIVE (NEGATIVE); URINE BLOOD NEGATIVE (NEGATIVE); URINE CLARITY Clear (Clear); URINE COLOR Yellow (YELLOW); URINE GLUCOSE (UA) NORMAL (Normal); URINE LEUKOCYTE ESTERASE 1+ Leu/uL (Negative); URINE PROTEIN NEGATIVE (NEGATIVE); URINE UROBILINOGEN NORMAL mg/dL (0.2-1.0)
[2018-10-25] MEDS ORDERED: Glucagon Recombinant 1 mg Inj IM PRN (21:59)
[2018-10-25] MEDS ORDERED: Dextrose 50% SYRINGE Inj (50 ml) IV PRN (21:59)
[2018-10-25] MEDS ORDERED: Rosuvastatin Calcium 2.5 mg Tab PO SCH (22:00)
[2018-10-25 22:26] VITALS: RESP 20
--- NOTE | 2018-10-25 22:30 | CP.PCM.HP ---
<Jake Bridges N - Last Filed: 10/26/18 07:20> Meds Allergies/Adverse Reactions: Allergies Allergy/AdvReac Type Severity Reaction Status Date / Time No Known Allergies Allergy Verified 08/17/17 09:17 Results - Vital Signs Recent Vital Signs: Last Vital Signs Temp 98.7 F 10/26/18 00:00 Pulse 73 10/26/18 00:00 Resp 20 10/26/18 00:00 BP 136/70 10/26/18 00:00 Pulse Ox 95 10/26/18 04:00 - Labs Result Diagrams: 10/25/18 20:08 10/25/18 20:08 Labs: Laboratory Results - last 24 hr 10/25/18 10/25/18 10/25/18 18:36 20:08 20:08 WBC 6.3 RBC 4.14 Hgb 13.1 Hct 38.1 MCV 92.1 MCH 31.7 H MCHC 34.4 RDW 12.5 Plt Count 242 MPV 7.6 Neut % (Auto) 66.1 Lymph % (Auto) 24.0 [facility] [facility] % (Auto) 6.2 Eos % (Auto) 3.2 Baso % (Auto) 0.5 Neut # (Auto) 4.1 Lymph # (Auto) 1.5 [facility] # (Auto) 0.4 Eos # (Auto) 0.2 Baso # (Auto) 0.0 Sodium 124 L Potassium 3.9 Chloride 88 L Carbon Dioxide 25 Anion Gap 15 BUN 10 Creatinine 0.6 L Est GFR ( Amer) > 60 Est GFR (Non-Af Amer) > 60 POC Glucose (mg/dL) 141 H Random Glucose 110 H Calcium 8.6 Total Bilirubin 0.4 AST 31 ALT 17 Alkaline Phosphatase 37 L Total Protein 6.1 L Albumin 3.8 Globulin 2.2 Albumin/Globulin Ratio 1.7 Lipase 233 Urine Color Urine Clarity Urine pH Ur Specific [place] Urine Protein Urine Glucose (UA) Urine Ketones Urine Blood Urine Nitrate Urine Bilirubin Urine Urobilinogen Ur Leukocyte Esterase Urine WBC (Auto) Urine RBC (Auto) Ur Squamous Epith Cells Urine Bacteria Ur Random Sodium 10/25/18 10/26/18 20:13 06:40 WBC RBC Hgb Hct MCV MCH MCHC RDW Plt Count MPV Neut % (Auto) Lymph % (Auto) [facility] % (Auto) Eos % (Auto) Baso % (Auto) Neut # (Auto) Lymph # (Auto) [facility] # (Auto) Eos # (Auto) Baso # (Auto) Sodium Potassium Chloride Carbon Dioxide Anion Gap BUN Creatinine Est GFR ( Amer) Est GFR (Non-Af Amer) POC Glucose (mg/dL) Random Glucose Calcium Total Bilirubin AST ALT Alkaline Phosphatase Total Protein Albumin Globulin Albumin/Globulin Ratio Lipase Urine Color Yellow Urine Clarity Clear Urine pH 7.0 Ur Specific [place] 1.004 Urine Protein Negative Urine Glucose (UA) Normal Urine Ketones Negative Urine Blood Negative Urine Nitrate Positive H Urine Bilirubin Negative Urine Urobilinogen Normal Ur Leukocyte Esterase 1+ H Urine WBC (Auto) 6 H Urine RBC (Auto) 3 Ur Squamous Epith Cells < 1 Urine Bacteria Occ H Ur Random Sodium 98 Attending/Attestation - Attestation I have fully participated in the care of the patient.: Yes I have reviewed all pertinent clinical information: Yes Notes (Text): 10/26/:21 i have personally seen this pt with the resident and agree with menegement. <Abiel Butler - Last Filed: 10/26/18 09:17> History of Present Illness - History of Present Illness History of Present Illness: 63 year old female with a past medical history of diabetes, hyperchol esterolemia, neuralgia and SLE presents to the hospital after having a headache for the past two days. Patient reports having them in the past. Patient reports them in the back of her head and front part of her forehead with no radiation. Patient states the pain is an 7/10 in severity. Patient reports taking Tramadol with no improvement in headache symptoms. Patient also reported feeling dizzy today. She states she felt unstable when walking. She states when the gait instability happened, she decided to come into the hospital. Of, note she has had some dental work done including new denture placement. She states she was referred to a Peridontist, however hasn't had the appointment. She denies any changes in vision, photophobia, syncopal episodes, lightheadedness, or any other associated symptoms. Patient also reported polydypsia that occurred last night. Patient states she drank six glasses of water over one hour last night. Patient reports only feeling the only had this sensation over the night. Patient states she starting drinking that much water cause her urine was burning as well. She denies any vaginal discharge, heamturia, recent trauma or any other associated symptoms. Patient also reports epigastric discomfort for the past week. She denies any association with food and states that it comes and goes. She denies taking anything at home for the epigastric discomfort. She denies any recent travel, or unintentional weight loss in conjunction with the symptoms. PMD: Neurologist: Dr. Andres Benjamin history: dm, hypercholesterolemia, neuralgias, sle Allergies: Denies Medications:, Hydroxychlorquine 200mg PO DAILY, Metformin 500mg PO BID, Metoprolol 25mg PO DAILY, Enalapril 2.5mg PO BID, Simvistatin 5mg PO HS, Calcium-vitamin d, Lamotrigine Present on Admission - Present on Admission Any Indicators Present on Admission: No Past Patient History - Past Medical History & Family History Past Medical History?: Yes - Past Social History Smoking Status: Never Smoked - CARDIAC Hx Hypercholesterolemia: Yes Hx Hypertension: Yes - PULMONARY Hx Respiratory Disorders: No - NEUROLOGICAL Hx Neurological Disorder: Yes Hx Vertigo: Yes - HEENT Hx HEENT Problems: No - RENAL Hx Chronic Kidney Disease: No - ENDOCRINE/METABOLIC Hx Endocrine Disorders: Yes Hx Diabetes Mellitus Type 2: Yes - HEMATOLOGICAL/ONCOLOGICAL Hx Blood Disorders: No - INTEGUMENTARY Hx Dermatological Problems: No - MUSCULOSKELETAL/RHEUMATOLOGICAL Hx Falls: No - GASTROINTESTINAL Hx Gastrointestinal Disorders: No - GENITOURINARY/GYNECOLOGICAL Hx Genitourinary Disorders: No - PSYCHIATRIC Hx Substance Use: No - SURGICAL HISTORY Hx Surgeries: Yes Hx Hysterectomy: Yes (1993) Other/Comment: varicose vein stripping 1995 - ANESTHESIA Hx Anesthesia: Yes Hx Anesthesia Reactions: No Results - Vital Signs Recent Vital Signs: Last Vital Signs Temp 98.0 F 10/25/18 22:25 Pulse 68 10/25/18 22:25 Resp 20 10/25/18 22:25 BP 166/80 H 10/25/18 22:25 Pulse Ox 96 10/25/18 22:25 - Labs Result Diagrams: 10/26/18 07:26 10/26/18 07:26 Labs: Laboratory Results - last 24 hr 10/25/18 10/25/18 10/25/18 18:36 20:08 20:08 WBC 6.3 RBC 4.14 Hgb 13.1 Hct 38.1 MCV 92.1 MCH 31.7 H MCHC 34.4 RDW 12.5 Plt Count 242 MPV 7.6 Neut % (Auto) 66.1 Lymph % (Auto) 24.0 [facility] [facility] % (Auto) 6.2 Eos % (Auto) 3.2 Baso % (Auto) 0.5 Neut # (Auto) 4.1 Lymph # (Auto) 1.5 [facility] # (Auto) 0.4 Eos # (Auto) 0.2 Baso # (Auto) 0.0 Sodium 124 L Potassium 3.9 Chloride 88 L Carbon Dioxide 25 Anion Gap 15 BUN 10 Creatinine 0.6 L Est GFR ( Amer) > 60 Est GFR (Non-Af Amer) > 60 POC Glucose (mg/dL) 141 H Random Glucose 110 H Calcium 8.6 Total Bilirubin 0.4 AST 31 ALT 17 Alkaline Phosphatase 37 L Total Protein 6.1 L Albumin 3.8 Globulin 2.2 Albumin/Globulin Ratio 1.7 Lipase 233 Urine Color Urine Clarity Urine pH Ur Specific [place] Urine Protein Urine Glucose (UA) Urine Ketones Urine Blood Urine Nitrate Urine Bilirubin Urine Urobilinogen Ur Leukocyte Esterase Urine WBC (Auto) Urine RBC (Auto) Ur Squamous Epith Cells Urine Bacteria 10/25/18 20:13 WBC RBC Hgb Hct MCV MCH MCHC RDW Plt Count MPV Neut % (Auto) Lymph % (Auto) [facility] [facility] % (Auto) Eos % (Auto) Baso % (Auto) Neut # (Auto) Lymph # (Auto) [facility] [facility] # (Auto) Eos # (Auto) Baso # (Auto) Sodium Potassium Chloride Carbon Dioxide Anion Gap BUN Creatinine Est GFR ( Amer) Est GFR (Non-Af Amer) POC Glucose (mg/dL) Random Glucose Calcium Total Bilirubin AST ALT Alkaline Phosphatase Total Protein Albumin Globulin Albumin/Globulin Ratio Lipase Urine Color Yellow Urine Clarity Clear Urine pH 7.0 Ur Specific [place] 1.004 Urine Protein Negative Urine Glucose (UA) Normal Urine Ketones Negative Urine Blood Negative Urine Nitrate Positive H Urine Bilirubin Negative Urine Urobilinogen Normal Ur Leukocyte Esterase 1+ H Urine WBC (Auto) 6 H Urine RBC (Auto) 3 Ur Squamous Epith Cells < 1 Urine Bacteria Occ H Assessment & Plan - Assessment and Plan (Free Text) Assessment: 63 year old female with a past medical history of diabetes, hypercholesterolemia, neuralgia and SLE presents to the hospital after having a headache for the past two days. Plan: 1.Acute headaches w/ dizziness -Head ct ordered. Will f/u with results -Sinus ct ordered .Will f/u with results. -Neurochecks q4 2.Hyponatremia 2/2 to polydypisia Na:124 on admission Urine na, osmolarity ordered .Will f/u with results. Serum osmolarity ordered. Will f/u with results. FeNa ordered .Will f/u with results. 3.UTI U/A: Nitrate positive, Leukocyte esterase +1, WBC 6 Urine cx ordered. Will f/u with results Medications: Rocephin 1gram 4.hx of DM -Hemoglobin A1C ordered .Will f/u with results. -Home medication Metformin held -ISS ACHS -Hypoglycemic protocol 5.hx of SLE -Continue Plaquenil 200mg PO DAILY. 6.hx of Neuralgias -Patient takes Lamotrigine, however need to verify dosage prior to restarting. PPX -Pepcid -Heparin Plan discussed with Attending Dr. Bridges. Abiel Butler, PGY-2
[2018-10-25] MEDS: (Novolin R) Insulin Human Regular 100 units/ml vial SC SCH (22:39)
[2018-10-26] MEDS ORDERED: Sodium Chloride 0.9% 250 ML IV SCH (03:00)
--- NOTE | 2018-10-26 07:24 | CP.PCM.PCO ---
Physician Communication Note - Physician Communication Note Physician Communication Note: will hold dvt ppx until CT head is completed and rules out pathology
[2018-10-26 07:41] LABS: OSMOLALITY,URINE 315 mosm/kg (300-1000)
[2018-10-26 07:41] LABS: BASO % 0.4 % (0.0-2.0); EOS # 0.3 K/uL (0.0-0.7); EOS % 2.8 % (0.0-4.0); HEMOGLOBIN 13.5 g/dL (11.0-16.0); LYMPH # 1.2 K/uL (1.0-4.3); LYMPH % 12.6 % (20.0-40.0); MEAN CELL VOLUME 93.7 fL (81.0-99.0); MEAN CORPUSCULAR HGB CONC 34.2 g/dL (33.0-37.0); MEAN PLATELET VOLUME 7.6 fL (7.2-11.7); MONO # 0.5 K/uL (0.0-0.8); MONO % 5.5 % (0.0-10.0); NEUT # 7.3 K/uL (1.8-7.0); NEUT % 78.7 % (50.0-75.0); RBC 4.22 Mil/uL (3.80-5.20); RED CELL DISTRIBUTION WIDTH 12.5 % (11.5-14.5); WHITE BLOOD COUNT 9.2 K/uL (4.8-10.8)
[2018-10-26] MEDS: (Novolin R) Insulin Human Regular 100 units/ml vial SC SCH ×2 (07:45→11:36)
[2018-10-26 07:54] VITALS: O2SAT 97
[2018-10-26 08:13] LABS: ALB/GLOB RATIO 1.6 (1.0-2.1); ALBUMIN 3.7 g/dL (3.5-5.0); ALT/SGPT 17 U/L (9-52); AST/SGOT 29 U/L (14-36); BLOOD UREA NITROGEN 10 mg/dL (7-17); CALCIUM 8.9 mg/dl (8.6-10.4); GFR NON-AFRICAN AMERICAN > 60
--- NOTE | 2018-10-26 08:19 | RAD ---
Date of service: 10/25/2018 PROCEDURE: Radiographs of the chest and abdomen (obstructive series) HISTORY: abd pain COMPARISON: None available. TECHNIQUE: AP radiograph of the chest, with upright and supine radiographs of the abdomen. FINDINGS: CHEST: Heart size appears within normal limits. Ectatic aorta containing atherosclerotic calcifications. Biapical pleural thickening. Left basilar atelectasis. Increased lucencies especially within the bilateral upper lung seo compatible with underlying emphysema. No significant pleural effusion or definite pneumothorax. Please note that chest x-ray has limited sensitivity for the detection of pulmonary masses. ABDOMEN AND PELVIS: Nonobstructive bowel gas pattern. Moderate constipation. No definite free air. Osseous demineralization. Loss of T1 vertebral body height. Multilevel degenerative changes. Scoliosis. IMPRESSION: Biapical pleural thickening. Left basilar atelectasis. Emphysematous changes. Ectatic aorta containing atherosclerotic calcifications. Moderate constipation. Loss of T1 vertebral body height. Multilevel degenerative changes. Osseous demineralization. Scoliosis.
--- NOTE | 2018-10-26 08:36 | CT ---
Date of service: 10/26/2018 PROCEDURE: CT HEAD WITHOUT CONTRAST. HISTORY: New onset headache and dizziness COMPARISON: 10/20/2017. TECHNIQUE: Axial computed tomography images were obtained through the head/brain without intravenous contrast. Radiation dose: Total exam DLP = 944.19 mGy-cm. This CT exam was performed using one or more of the following dose reduction techniques: Automated exposure control, adjustment of the mA and/or kV according to patient size, and/or use of iterative reconstruction technique. FINDINGS: HEMORRHAGE: No intracranial hemorrhage. BRAIN: [place]-white matter differentiation is preserved. There is redemonstration of a 1.1 x 1.1 cm left posterior fossa hyperdense extra-axial lesion abutting the superior tentorium. There is no mass effect or abnormal extra-axial fluid collection. There is no territorial infarction. The midline sagittal structures are normal. VENTRICLES: There is mild age-related global parenchymal volume loss and proportionate enlargement of the ventricles and cortical sulci. CALVARIUM: There is no calvarial fracture or extracranial soft tissue swelling. PARANASAL SINUSES: Predominantly clear. MASTOID AIR CELLS: Predominantly clear. OTHER FINDINGS: None. IMPRESSION: No acute intracranial abnormality. 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 A preliminary report was provided by [employer].
--- NOTE | 2018-10-26 08:44 | CT ---
Date of service: 10/26/2018 PROCEDURE: CT SINUSES WITHOUT CONTRAST HISTORY: maxillary pain, hx of dental work COMPARISON: None available. TECHNIQUE: Contiguous axial CT images of the paranasal sinuses were obtained. Coronal and sagittal reformats were generated. Radiation dose: Total exam DLP = 625.64 mGy-cm. This CT exam was performed using one or more of the following dose reduction techniques: Automated exposure control, adjustment of the mA and/or kV according to patient size, and/or use of iterative reconstruction technique. FINDINGS: FRONTAL SINUSES: Well developed and well aerated without mucosal thickening or fluid. ETHMOID SINUSES: Well developed. There is mild scattered mucosal thickening, worse in the right posterior ethmoid air cell. No fluid. SPHENOID SINUSES: Well developed and well aerated without mucosal thickening or fluid. There is pneumatization of the right lateral recess of the sphenoid sinus. MAXILLARY SINUSES: Well developed. There is mild polypoid mucosal thickening in both maxillary sinuses and a small retention cyst/polyp in the right maxillary sinus no fluid. SINUS DRAINAGE: Osteomeatal complexes, frontal recesses and sphenoethmoid recesses clear. NASAL SEPTUM: Deviated to the left with a mid septal bony spur which indents the left inferior turbinate. No destructive lesion. MASS: None. SKULL BASE: Unremarkable. TEMPORAL BONES: Middle ears and mastoid grossly unremarkable. OTHER FINDINGS: None. IMPRESSION: 1. Mild chronic ethmoid and maxillary sinusitis, worse in the maxillary sinuses. 2. Nasal septum deviated to the left with a mid septal bony spur which indents the left inferior turbinate. A preliminary report was provided by [employer].
--- NOTE | 2018-10-26 09:14 | CP.PCM.PN ---
Subjective - Date & Time of Evaluation Date of Evaluation: 10/26/18 Time of Evaluation: 09:14 - Subjective Subjective: PGY-1 Anny Shea D.O. Medicine progress note for Dr. Marinelli's service: Patient was seen and examined this morning. Objective - Vital Signs/Intake and Output Vital Signs (last 24 hours): Temp Pulse Resp BP Pulse Ox 98.5 F 75 20 151/79 H 97 10/26/18 07:00 10/26/18 07:00 10/26/18 07:00 10/26/18 07:00 10/26/18 07:00 - Medications Medications: Current Medications Dextrose (Dextrose 50% Inj) 0 ml IV STAT PRN; Protocol PRN Reason: Hypoglycemia Protocol Dextrose (Glutose 15) 0 gm PO ONCE PRN; Protocol PRN Reason: Hypoglycemia Protocol Enalapril Maleate (Vasotec) 2.5 mg PO BID JAIME Famotidine (Pepcid) 20 mg PO DAILY JAIME Glucagon (Glucagen Diagnostic Kit) 0 mg IM STAT PRN; Protocol PRN Reason: Hypoglycemia Protocol Heparin Sodium (Porcine) (Heparin) 5,000 units SC Q12 JAIME Hydroxychloroquine Sulfate (Plaquenil) 200 mg PO DAILY JAIME; Protocol Dextrose (Dextrose 5% In Water 1000 Ml) 1,000 mls @ 0 mls/hr IV .Q0M PRN; Protocol PRN Reason: Hypoglycemia Protocol Ceftriaxone Sodium 1 gm/ (Sodium Chloride) 100 mls @ 100 mls/hr IVPB DAILY JAIME; Protocol Insulin Human Regular (Novolin R) 0 unit SC ACHS JAIME; Protocol Last Admin: 10/26/18 07:45 Dose: Not Given Metoprolol Succinate (Toprol Xl) 25 mg PO DAILY JAIME Rosuvastatin Calcium (Crestor) 2.5 mg PO HS JAIME Last Admin: 10/25/18 22:48 Dose: 2.5 mg - Labs Labs: 10/26/18 07:26 10/26/18 07:26
[2018-10-26] MEDS ORDERED: Metoprolol Succinate 25 mg XL Tab PO SCH (10:00)
--- NOTE | 2018-10-26 11:26 | CP.PCM.CON ---
History of Present Illness - History of Present Illness History of Present Illness: Nephro Consult Note for Dr. Tenorio Service Tariq Caro DO PGY-3 Consulted for: Hyponatremia This is a 63 yo F with PMH of DM, hypercholesterolemia, SLE, and neuralgias who presented to [facility] with complaint of frontal and posterior headache x2 days, and dizziness overnight. Patient was found to have a sodium of 124, for which Nephro was consulted. Patient admit that she experience a sensation of pain with urination yesterday (now resolved), and acutely became very thirsty to the point where she drank 6 glasses of water in an hour. Admits sometimes gets dizzy and thirsty at nights, but not usually nils t much. Reports chronic poor sleep with intermittent dizziness. Reports dizziness worse yesterday, and also had nausea throughout the day, but without emesis. Denies fevers, chills, chest pain, shortness of breath, hematuria, emesis, diarrhea, loss of appetite, lack of PO intake, vision changes, syncope/near-syncope, or focal/global weakness. This AM, patient's sodium corrected to 133 (received 1L NS bolus in ED overnight). Patient tolerating diet. Reports resolution of all symptoms. 12-system ROS reviewed and negative, except as above. PMH: as above PSH: denies Fam Hx: unknown Soc Hx: denies tobacco, alcohol, illicits Review of Systems - Review of Systems All systems: reviewed and no additional remarkable complaints except (as per HPI) Past Patient History - Past Medical History & Family History Past Medical History?: Yes - Past Social History Smoking Status: Never Smoked - CARDIAC Hx Hypercholesterolemia: Yes Hx Hypertension: Yes - PULMONARY Hx Respiratory Disorders: No - NEUROLOGICAL Hx Neurological Disorder: Yes Hx Vertigo: Yes - HEENT Hx HEENT Problems: No - RENAL Hx Chronic Kidney Disease: No - ENDOCRINE/METABOLIC Hx Endocrine Disorders: Yes Hx Diabetes Mellitus Type 2: Yes - HEMATOLOGICAL/ONCOLOGICAL Hx Blood Disorders: No - INTEGUMENTARY Hx Dermatological Problems: No - MUSCULOSKELETAL/RHEUMATOLOGICAL Hx Falls: No - GASTROINTESTINAL Hx Gastrointestinal Disorders: No - GENITOURINARY/GYNECOLOGICAL Hx Genitourinary Disorders: No - PSYCHIATRIC Hx Substance Use: No - SURGICAL HISTORY Hx Surgeries: Yes Hx Hysterectomy: Yes (1993) Other/Comment: varicose vein stripping 1995 - ANESTHESIA Hx Anesthesia: Yes Hx Anesthesia Reactions: No Meds Allergies/Adverse Reactions: Allergies Allergy/AdvReac Type Severity Reaction Status Date / Time No Known Allergies Allergy Verified 08/17/17 09:17 - Medications Medications: Current Medications Dextrose (Dextrose 50% Inj) 0 ml IV STAT PRN; Protocol PRN Reason: Hypoglycemia Protocol Dextrose (Glutose 15) 0 gm PO ONCE PRN; Protocol PRN Reason: Hypoglycemia Protocol Enalapril Maleate (Vasotec) 2.5 mg PO BID [facility] Last Admin: 10/26/18 09:25 Dose: 2.5 mg Famotidine (Pepcid) 20 mg PO DAILY [facility] Last Admin: 10/26/18 09:26 Dose: 20 mg Glucagon (Glucagen Diagnostic Kit) 0 mg IM STAT PRN; Protocol PRN Reason: Hypoglycemia Protocol Heparin Sodium (Porcine) (Heparin) 5,000 units SC Q12 [facility] Hydroxychloroquine Sulfate (Plaquenil) 200 mg PO DAILY [facility]; Protocol Last Admin: 10/26/18 10:14 Dose: 200 mg Dextrose (Dextrose 5% In Water 1000 Ml) 1,000 mls @ 0 mls/hr IV .Q0M PRN; Protocol PRN Reason: Hypoglycemia Protocol Ceftriaxone Sodium 1 gm/ (Sodium Chloride) 100 mls @ 100 mls/hr IVPB DAILY [facility]; Protocol Last Admin: 10/26/18 09:26 Dose: 100 mls/hr Insulin Human Regular (Novolin R) 0 unit SC ACHS [facility]; Protocol Last Admin: 10/26/18 07:45 Dose: Not Given Metoprolol Succinate (Toprol Xl) 25 mg PO DAILY [facility] Last Admin: 10/26/18 09:26 Dose: 25 mg Rosuvastatin Calcium (Crestor) 2.5 mg PO HS [facility] Last Admin: 10/25/18 22:48 Dose: 2.5 mg Physical Exam - Constitutional Appears: Non-toxic, No Acute Distress - Head Exam Head Exam: ATRAUMATIC, NORMAL INSPECTION, NORMOCEPHALIC - Eye Exam Eye Exam: EOMI, Normal appearance. absent: Conjunctival injection, Scleral icterus Pupil Exam: absent: Irregular, Unequal - ENT Exam ENT Exam: Mucous Membranes Moist - Neck Exam Neck exam: Positive for: Full Rom, Normal Inspection - Respiratory Exam Respiratory Exam: Clear to Auscultation Bilateral, NORMAL BREATHING PATTERN. absent: Accessory Muscle Use, Chest Wall Tenderness, Decreased Breath Sounds, Rales, Rhonchi, Wheezes - Cardiovascular Exam Cardiovascular Exam: REGULAR RHYTHM, RRR, +S1, +S2. absent: Bradycardia, Tac hycardia, Irregular Rhythm, JVD - GI/Abdominal Exam GI & Abdominal Exam: Normal Bowel Sounds, Soft. absent: Distended, Firm, Guarding, Rigid, Tenderness - Extremities Exam Extremities exam: Positive for: normal capillary refill, normal inspection, pedal pulses present. Negative for: calf tenderness, joint swelling, pedal edema, tenderness - Neurological Exam Additional comments: awake and alert, following all commands appropriately, moving all extremities spontaneously - Psychiatric Exam Psychiatric exam: Normal Affect, Normal Mood - Skin Skin Exam: Dry, Intact, Normal Color, Warm Results - Vital Signs Recent Vital Signs: Last Vital Signs Temp 98.5 F 10/26/18 07:00 Pulse 75 10/26/18 07:00 Resp 20 10/26/18 07:00 BP 151/79 H 10/26/18 09:25 Pulse Ox 97 10/26/18 07:00 - Labs Result Diagrams: 10/26/18 07:26 10/26/18 07:26 Labs: Laboratory Results - last 24 hr 10/25/18 10/25/18 10/25/18 18:36 20:08 20:08 WBC 6.3 RBC 4.14 Hgb 13.1 Hct 38.1 MCV 92.1 MCH 31.7 H MCHC 34.4 RDW 12.5 Plt Count 242 MPV 7.6 Neut % (Auto) 66.1 Lymph % (Auto) 24.0 [place] % (Auto) 6.2 Eos % (Auto) 3.2 Baso % (Auto) 0.5 Neut # (Auto) 4.1 Lymph # (Auto) 1.5 [place] # (Auto) 0.4 Eos # (Auto) 0.2 Baso # (Auto) 0.0 Sodium 124 L Potassium 3.9 Chloride 88 L Carbon Dioxide 25 Anion Gap 15 BUN 10 Creatinine 0.6 L Est GFR ( Amer) > 60 Est GFR (Non-Af Amer) > 60 POC Glucose (mg/dL) 141 H Random Glucose 110 H Hemoglobin A1c Serum Osmolality Calcium 8.6 Phosphorus Magnesium Total Bilirubin 0.4 AST 31 ALT 17 Alkaline Phosphatase 37 L Total Protein 6.1 L Albumin 3.8 Globulin 2.2 Albumin/Globulin Ratio 1.7 Lipase 233 Urine Color Urine Clarity Urine pH Ur Specific [place] Urine Protein Urine Glucose (UA) Urine Ketones Urine Blood Urine Nitrate Urine Bilirubin Urine Urobilinogen Ur Leukocyte Esterase Urine WBC (Auto) Urine RBC (Auto) Ur Squamous Epith Cells Urine Bacteria Urine Osmolality Ur Random Sodium 10/25/18 10/26/18 10/26/18 20:13 06:40 07:20 WBC RBC Hgb Hct MCV MCH MCHC RDW Plt Count MPV Neut % (Auto) Lymph % (Auto) [place] % (Auto) Eos % (Auto) Baso % (Auto) Neut # (Auto) Lymph # (Auto) [place] # (Auto) Eos # (Auto) Baso # (Auto) Sodium Potassium Chloride Carbon Dioxide Anion Gap BUN Creatinine Est GFR ( Amer) Est GFR (Non-Af Amer) POC Glucose (mg/dL) 112 H Random Glucose Hemoglobin A1c Serum Osmolality Calcium Phosphorus Magnesium Total Bilirubin AST ALT Alkaline Phosphatase Total Protein Albumin Globulin Albumin/Globulin Ratio Lipase Urine Color Yellow Urine Clarity Clear Urine pH 7.0 Ur Specific [place] 1.004 Urine Protein Negative Urine Glucose (UA) Normal Urine Ketones Negative Urine Blood Negative Urine Nitrate Positive H Urine Bilirubin Negative Urine Urobilinogen Normal Ur Leukocyte Esterase 1+ H Urine WBC (Auto) 6 H Urine RBC (Auto) 3 Ur Squamous Epith Cells < 1 Urine Bacteria Occ H Urine Osmolality 315 Ur Random Sodium 98 10/26/18 10/26/18 10/26/18 07:26 07:26 07:26 WBC 9.2 RBC 4.22 Hgb 13.5 Hct 39.5 MCV 93.7 MCH 32.0 H MCHC 34.2 RDW 12.5 Plt Count 265 MPV 7.6 Neut % (Auto) 78.7 H Lymph % (Auto) 12.6 L [place] % (Auto) 5.5 Eos % (Auto) 2.8 Baso % (Auto) 0.4 Neut # (Auto) 7.3 H Lymph # (Auto) 1.2 [place] # (Auto) 0.5 Eos # (Auto) 0.3 Baso # (Auto) 0.0 Sodium Potassium Chloride Carbon Dioxide Anion Gap BUN Creatinine Est GFR ( Amer) Est GFR (Non-Af Amer) POC Glucose (mg/dL) Random Glucose Hemoglobin A1c 6.4 Serum Osmolality 284 Calcium Phosphorus Magnesium Total Bilirubin AST ALT Alkaline Phosphatase Total Protein Albumin Globulin Albumin/Globulin Ratio Lipase Urine Color Urine Clarity Urine pH Ur Specific [place] Urine Protein Urine Glucose (UA) Urine Ketones Urine Blood Urine Nitrate Urine Bilirubin Urine Urobilinogen Ur Leukocyte Esterase Urine WBC (Auto) Urine RBC (Auto) Ur Squamous Epith Cells Urine Bacteria Urine Osmolality Ur Random Sodium 10/26/18 10/26/18 07:26 11:19 WBC RBC Hgb Hct MCV MCH MCHC RDW Plt Count MPV Neut % (Auto) Lymph % (Auto) [place] % (Auto) Eos % (Auto) Baso % (Auto) Neut # (Auto) Lymph # (Auto) [place] # (Auto) Eos # (Auto) Baso # (Auto) Sodium 133 Potassium 4.1 Chloride 99 Carbon Dioxide 26 Anion Gap 12 BUN 10 Creatinine 0.7 Est GFR ( Amer) > 60 Est GFR (Non-Af Amer) > 60 POC Glucose (mg/dL) 107 Random Glucose 134 H D Hemoglobin A1c Serum Osmolality Calcium 8.9 Phosphorus 4.0 Magnesium 1.9 Total Bilirubin 0.3 AST 29 ALT 17 Alkaline Phosphatase 38 Total Protein 6.0 L Albumin 3.7 Globulin 2.3 Albumin/Globulin Ratio 1.6 Lipase Urine Color Urine Clarity Urine pH Ur Specific [place] Urine Protein Urine Glucose (UA) Urine Ketones Urine Blood Urine Nitrate Urine Bilirubin Urine Urobilinogen Ur Leukocyte Esterase Urine WBC (Auto) Urine RBC (Auto) Ur Squamous Epith Cells Urine Bacteria Urine Osmolality Ur Random Sodium Assessment & Plan - Assessment and Plan (Free Text) Assessment: This is a 63 yo F with PMH of DM, hypercholesterolemia, SLE, and neuralgias who presented to [facility] with complaint of frontal and posterior headache x2 days, and dizziness overnight. Patient was found to have a sodium of 124, for which Nephro was consulted. Plan: 1) Hyponatremia - resolved 2) DM 3) Hypercholesterolemia 4) Neuralgias 5) Dysuria 6) HTN -Hyponatremic to 124 on admission, hypovolemic hyponatremia vs dilutional hyponatremia due to acute high water intake Urine osms appear elevated given presenting hyponatremia, but not obtained until this AM after receiving IVF, so unreliable Urine electrolytes and serum osms noted Pt admitted to ED decreased PO intake, minimal food and 1-2 bottles of water daily, more suggestive of hypovolemic hyponatremia Overcorrected to 133 (increased by 9), goal is 6-8 per day, avoid further correction to prevent osmotic demyelination 250cc D5W ordered at 100cc/hr x1 to reduce overcorrection -Suspect possible UTI element, pt switched from Macrobid to Rocephin by primary team -Neuro following, appreciate their recs -Head CT reviewed, notable for redemonstration of 1.1 x 1.1cm meningioma, no acute findings -Continue current antihypertensive regimen and diabetic regimen If BP remains elevated, can consider addition of JUAN or ARB given DM hx, renal and cardio protective Patient seen, reviewed, and discussed with attending, Dr. Tenorio
--- NOTE | 2018-10-26 14:47 | CP.PCM.DIS ---
Provider - Provider Date of Admission: 10/25/18 21:16 Attending physician: Henry Marinelli MD Consults: 10/26/18 07:19 Nephrology Consult Routine Comment: Consulting Provider: Enzo Tenorio Consulting Physician: Enzo Tenorio Reason for Consult: hyponatremia Time Spent in preparation of Discharge (in minutes): 45 Diagnosis - Discharge Diagnosis (1) Hyponatremia Status: Resolved Priority: High (2) Headache Status: Resolved Priority: High (3) Meningioma Status: Chronic Priority: Medium (4) T2DM (type 2 diabetes mellitus) Status: Chronic Priority: Medium (5) Lupus Status: Chronic Priority: Medium (6) Hypercholesteremia Status: Chronic Priority: Low Hospital Course - Lab Results Lab Results: Most Recent Lab Values WBC 9.2 K/uL (4.8-10.8) 10/26/18 07:26 RBC 4.22 Mil/uL (3.80-5.20) 10/26/18 07:26 Hgb 13.5 g/dL (11.0-16.0) 10/26/18 07:26 Hct 39.5 % (34.0-47.0) 10/26/18 07:26 MCV 93.7 fL (81.0-99.0) 10/26/18 07:26 MCH 32.0 pg (27.0-31.0) H 10/26/18 07:26 MCHC 34.2 g/dL (33.0-37.0) 10/26/18 07:26 RDW 12.5 % (11.5-14.5) 10/26/18 07:26 Plt Count 265 K/uL (130-400) 10/26/18 07:26 MPV 7.6 fL (7.2-11.7) 10/26/18 07:26 Neut % (Auto) 78.7 % (50.0-75.0) H 10/26/18 07:26 Lymph % (Auto) 12.6 % (20.0-40.0) L 10/26/18 07:26 [place] % (Auto) 5.5 % (0.0-10.0) 10/26/18 07:26 Eos % (Auto) 2.8 % (0.0-4.0) 10/26/18 07:26 Baso % (Auto) 0.4 % (0.0-2.0) 10/26/18 07:26 Neut # (Auto) 7.3 K/uL (1.8-7.0) H 10/26/18 07:26 Lymph # (Auto) 1.2 K/uL (1.0-4.3) 10/26/18 07:26 [place] # (Auto) 0.5 K/uL (0.0-0.8) 10/26/18 07:26 Eos # (Auto) 0.3 K/uL (0.0-0.7) 10/26/18 07:26 Baso # (Auto) 0.0 K/uL (0.0-0.2) 10/26/18 07:26 Sodium 133 mmol/L (132-148) 10/26/18 07:26 Potassium 4.1 mmol/L (3.6-5.2) 10/26/18 07:26 Chloride 99 mmol/L (98-107) 10/26/18 07:26 Carbon Dioxide 26 mmol/L (22-30) 10/26/18 07:26 Anion Gap 12 (10-20) 10/26/18 07:26 BUN 10 mg/dL (7-17) 10/26/18 07:26 Creatinine 0.7 mg/dL (0.7-1.2) 10/26/18 07:26 Est GFR ( Amer) > 60 10/26/18 07:26 Est GFR (Non-Af Amer) > 60 10/26/18 07:26 POC Glucose (mg/dL) 107 mg/dL (65-110) 10/26/18 11:19 Random Glucose 134 mg/dL (65-105) H D 10/26/18 07:26 Hemoglobin A1c 6.4 % (4.2-6.5) 10/26/18 07:26 Serum Osmolality 284 mosm/kg (272-300) 10/26/18 07:26 Calcium 8.9 mg/dl (8.6-10.4) 10/26/18 07:26 Phosphorus 4.0 mg/dL (2.5-4.5) 10/26/18 07:26 Magnesium 1.9 mg/dL (1.6-2.3) 10/26/18 07:26 Total Bilirubin 0.3 mg/dL (0.2-1.3) 10/26/18 07:26 AST 29 U/L (14-36) 10/26/18 07:26 ALT 17 U/L (9-52) 10/26/18 07:26 Alkaline Phosphatase 38 U/L (38-126) 10/26/18 07:26 Total Protein 6.0 g/dL (6.3-8.3) L 10/26/18 07:26 Albumin 3.7 g/dL (3.5-5.0) 10/26/18 07:26 Globulin 2.3 gm/dL (2.2-3.9) 10/26/18 07:26 Albumin/Globulin Ratio 1.6 (1.0-2.1) 10/26/18 07:26 Lipase 233 U/L (23-300) 10/25/18 20:08 Urine Color Yellow (YELLOW) 10/25/18 20:13 Urine Clarity Clear (Clear) 10/25/18 20:13 Urine pH 7.0 (5.0-8.0) 10/25/18 20:13 Ur Specific [place] 1.004 (1.003-1.030) 10/25/18 20:13 Urine Protein Negative mg/dL (NEGATIVE) 10/25/18 20:13 Urine Glucose (UA) Normal mg/dL (Normal) 10/25/18 20:13 Urine Ketones Negative mg/dL (NEGATIVE) 10/25/18 20:13 Urine Blood Negative (NEGATIVE) 10/25/18 20:13 Urine Nitrate Positive (NEGATIVE) H 10/25/18 20:13 Urine Bilirubin Negative (NEGATIVE) 10/25/18 20:13 Urine Urobilinogen Normal mg/dL (0.2-1.0) 10/25/18 20:13 Ur Leukocyte Esterase 1+ Eddie/uL (Negative) H 10/25/18 20:13 Urine WBC (Auto) 6 /hpf (0-5) H 10/25/18 20:13 Urine RBC (Auto) 3 /hpf (0-3) 10/25/18 20:13 Ur Squamous Epith Cells < 1 /hpf (0-5) 10/25/18 20:13 Urine Bacteria Occ (<OCC) H 10/25/18 20:13 Urine Osmolality 315 mosm/kg (300-1000) 10/26/18 06:40 Ur Random Sodium 98 mmol/L 10/26/18 06:40 - Hospital Course Hospital Course: 63 year old female with a past medical history of diabetes, hypercholesterolemia, neuralgia and SLE presents to the hospital after having a headache for the past two days. Patient reports having them in the past. Patient reports them in the back of her head and front part of her forehead with no radiation. Patient states the pain is an 7/10 in severity. Patient reports taking Tramadol with no improvement in headache symptoms. Patient also reported feeling dizzy today. She states she felt unstable when walking. She states when the gait instability happened, she decided to come into the hospital. Of, note she has had some dental work done including new denture placement. She states she was referred to a Peridontist, however hasn't had the appointment. She denies any changes in vision, photophobia, syncopal episodes, lightheadedness, or any other associated symptoms. Patient also reported polydypsia that occurred last night. Patient states she drank six glasses of water over one hour last night. Patient reports only feeling the only had this sensation over the night. Patient states she starting drinking that much water cause her urine was burning as well. She denies any vaginal discharge, hematuria, recent trauma or any other associated symptoms. Patient also reports epigastric discomfort for the past week. She denies any association with food and states that it comes and goes. She denies taking anything at home for the epigastric discomfort. She denies any recent travel, or unintentional weight loss in conjunction with the symptoms. Patient was found to have hyponatremia at 124. Nephrology was consulted. Patient was given 1L of NS. Sodium corrected to 133 by the following morning. She was seen by PT for associated dizziness who reported that she did not need any services as her gait was steady. Patient's UA was consistent with UTI. She also complained of dysuria. She was treated with abx. AXR was done as well that just showed moderate constipation. Patient's CT head showed 1.1x1.1 cm meningioma that was not present on MRI in 2016. Patient states that she follows up with a neurologist at [facility] and had an MRI last year. Upon discharge, patient denied headache and dizziness. Her sodium was wnl and her vitals were stable. Patient will follow-up with her neurologist as an outpatient to monitor the meningioma. She was instructed to limit water intake. Discharge Exam - Head Exam Head Exam: ATRAUMATIC, NORMAL INSPECTION, NORMOCEPHALIC - Eye Exam Eye Exam: EOMI, Normal appearance, PERRL - ENT Exam ENT Exam: Mucous Membranes Moist - Respiratory Exam Respiratory Exam: Clear to PA & Lateral, NORMAL BREATHING PATTERN, UNREMARKABLE - Cardiovascular Exam Cardiovascular Exam: RRR, +S1, +S2 - GI/Abdominal Exam GI & Abdominal Exam: Soft, Unremarkable. absent: Tenderness - Extremities Exam Extremities exam: normal inspection, pedal pulses present - Neurological Exam Neurological exam: Alert, CN II-XII Intact, Normal Gait, Oriented x3 - Psychiatric Exam Psychiatric exam: Normal Affect, Normal Mood - Skin Skin Exam: Dry, Normal Color, Warm Discharge Plan - Discharge Medications Prescriptions: Nitrofurantoin Macrocrystals [Macrobid] 100 mg PO Q12H #8 cap - Follow Up Plan Condition: IMPROVED Disposition: HOME/ ROUTINE Patient education suggested?: Yes Instructions: Acute Abdomen (Belly Pain), Adult (DC), Headache, Adult (DC), Hyponatremia (DC), Nitrofurantoin Additional Instructions: Follow-up with your neurologist, Dr. Campos, within 1 week of discharge as you will likely need a repeat MRI to evaluate meningioma. Resume all home medications. Additionally, take Macrobid (nitrofurantoin) 100 mg twice daily for a total of 4 days for your urinary tract infection. Complete all pills. Limit your water intake to 8 cups per day. If symptoms recur, return to the nearest emergency room.
[2018-10-26 15:50] VITALS: PULSE 63; TEMP 98.4
[2018-10-26 17:45] VITALS: BP 120/78
== END 2018-10-26 18:25 | disposition home or self-care (01) ==
LOC: C.ER 18:22 → C.9E 21:16 → C.3T 21:49
PROVIDERS: ADMIT Internal Medicine; ATTEND Internal Medicine
DX: E87.1 Hypo-osmolality and hyponatremia (principal); I10 Essential (primary) hypertension; R63.1 Polydipsia; K59.00 Constipation, unspecified; E11.9 Type 2 diabetes mellitus without complications; D32.9 Benign neoplasm of meninges, unspecified; M32.9 Systemic lupus erythematosus, unspecified; N39.0 Urinary tract infection, site not specified
CPT/HCPCS: 36415; 70450; 70486; 74022; 80053; 81001; 82948; 83036; 83690; 83735; 83930; 83935; 84100; 84300; 85025; 87086; 96374; 97116; 97161; 99285; G0378; G8978; G8979; J0696; J1885; J7030; J7060

== ENCOUNTER 2018-11-25 09:06 | Observation (INO) | payer MEDICARE, MEDICAID ==
[2018-11-25] MEDS ORDERED: Aspirin 325 mg EC Tablets PO STA (09:54)
[2018-11-25] MEDS ORDERED: Aspirin 325 mg EC Tablets PO ONE (10:22)
[2018-11-25 10:35] LABS: BASO % 0.3 % (0.0-2.0); EOS # 0.2 K/uL (0.0-0.7); EOS % 3.8 % (0.0-4.0); HEMOGLOBIN 13.5 g/dL (11.0-16.0); LYMPH # 0.9 K/uL (1.0-4.3); LYMPH % 14.8 % (20.0-40.0); MEAN CELL VOLUME 92.8 fL (81.0-99.0); MEAN CORPUSCULAR HGB CONC 34.6 g/dL (33.0-37.0); MEAN PLATELET VOLUME 7.7 fL (7.2-11.7); MONO # 0.4 K/uL (0.0-0.8); MONO % 6.4 % (0.0-10.0); NEUT # 4.5 K/uL (1.8-7.0); NEUT % 74.7 % (50.0-75.0); RBC 4.2 Mil/uL (3.80-5.20)
--- NOTE | 2018-11-25 10:40 | C.PDOC ---
History Of Present Illness 63 year old female with a history of diabetes and lupus presents to the emergency department with complaints of elevated blood pressure last night measuring at 160/100. Patient states that she took Metoprolol last night with no relief of symptoms. Patient reports headache and heaviness in her chest and posterior neck every morning for the past 3 days. Patient denies travel, syncope, NVD, cough, fever, and chills. Time Seen by Provider: 11/25/18 09:26 Chief Complaint (Nursing): Headache History Per: Patient History/Exam Limitations: no limitations Onset/Duration Of Symptoms: Days (3) Current Symptoms Are (Timing): Still Present Quality: Other (heaviness) Past Medical History Reviewed: Historical Data, Nursing Documentation, Vital Signs Vital Signs: Last Vital Signs Temp 98.5 F 11/25/18 09:15 Pulse 76 11/25/18 09:15 Resp 17 11/25/18 09:15 BP 139/78 11/25/18 09:15 Pulse Ox 97 11/25/18 09:15 Primary Care Provider: Basia Sinclair - Medical History PMH: Arthritis (back, scoliosis), Diabetes, HTN, Hypercholesterolemia Denies: Chronic Kidney Disease Surgical History: No Surg Hx - [facility] Procedures ESOPHAGOGASTRODUODENOSCOPY [EGD] W/CLOSED BIOPSY (09/12/04) Family History: States: No Known Family Hx - Social History Hx Tobacco Use: No Hx Alcohol Use: No Hx Substance Use: No - Immunization History Hx Tetanus Toxoid Vaccination: Yes Hx Influenza Vaccination: No Hx Pneumococcal Vaccination: Yes Review Of Systems Except As Marked, All Systems Reviewed And Found Negative. Constitutional: Negative for: Fever, Chills Cardiovascular: Positive for: Other (chest heaviness) Respiratory: Negative for: Cough, Shortness of Breath Gastrointestinal: Negative for: Nausea, Vomiting, Abdominal Pain, Diarrhea Neurological: Negative for: Headache Physical Exam - Physical Exam Appears: Non-toxic, No Acute Distress Skin: Normal Color, Warm, Dry Head: Atraumatic, Normacephalic Eye(s): bilateral: Normal Inspection Neck: No Midline Cervical Tenderness, Paracervical Tenderness (bilateral), Supple Chest: Symmetrical, No Tenderness Respiratory: Normal Breath Sounds, No Rales, No Rhonchi, No Wheezing Gastrointestinal/Abdominal: Soft, No Tenderness, No Guarding, No Rebound Extremity: Normal ROM Neurological/Psych: Oriented x3, Normal Speech, Normal Cognition ED Course And Treatment - Laboratory Results Result Diagrams: 11/25/18 10:22 11/25/18 11:09 ECG: Interpreted By Me, Viewed By Me ECG Rhythm: Sinus Rhythm Rate From EC O2 Sat by Pulse Oximetry: 97 (RA) Pulse Ox Interpretation: Normal - Radiology CXR: Interpreted by Me, Viewed By Me CXR Interpretation: Yes: No Acute Disease Medical Decision Making Medical Decision Making: Plan: EKG Chemistry CBC CXR Aspirin 325mg Nitro Tylenol 975mg PO 12:[address] Owen who accepted the patient for observation. Disposition - Disposition Forms: [facility] (Slovak) - Scribe Statement The provider has reviewed the documentation as recorded by the Scribe (Enzo Henriquez) Provider Attestation: All medical record entries made by the Scribe were at my direction and personally dictated by me. I have reviewed the chart and agree that the record accurately reflects my personal performance of the history, physical exam, medical decision making, and the department course for this patient. I have also personally directed, reviewed, and agree with the discharge instructions and disposition.
--- NOTE | 2018-11-25 10:59 | RAD ---
Date of service: 11/25/2018 PROCEDURE: CHEST RADIOGRAPH, 1 VIEW HISTORY: chest pain COMPARISON: 10/20/2017 FINDINGS: LUNGS: Lung volumes shallow. No consolidation appreciated. PLEURA: No pneumothorax or pleural fluid seen. CARDIOVASCULAR: There is presence of aortic atherosclerotic calcification on x-ray. Normal.No significant appearing pulmonary venous congestion. OSSEOUS STRUCTURES: Thoracic spondylosis. Bilateral shoulder arthrosis VISUALIZED UPPER ABDOMEN: Normal. OTHER FINDINGS: None. IMPRESSION: No active disease.
[2018-11-25 11:34] LABS: ALB/GLOB RATIO 1.5 (1.0-2.1); ALBUMIN 3.7 g/dL (3.5-5.0); ALT/SGPT 28 U/L (9-52); AST/SGOT 24 U/L (14-36); BLOOD UREA NITROGEN 12 mg/dL (7-17); CALCIUM 8.8 mg/dl (8.6-10.4); GFR NON-AFRICAN AMERICAN > 60
[2018-11-25 16:01] VITALS: O2SAT 98
[2018-11-25 17:43] LABS: CK-MB 0.97 ng/mL (0.0-3.38)
[2018-11-25] MEDS: Metoprolol Succinate 25 mg XL Tab PO SCH (18:47)
[2018-11-25] MEDS: (Novolin R) Insulin Human Regular 100 units/ml vial SC SCH (21:17)
[2018-11-25] MEDS ORDERED: Rosuvastatin Calcium 2.5 mg Tab PO SCH (22:00)
--- NOTE | 2018-11-25 23:36 | CP.PCM.HP ---
Present on Admission - Present on Admission Any Indicators Present on Admission: No Past Patient History - Past Medical History & Family History Past Medical History?: Yes - Past Social History Smoking Status: Never Smoked - CARDIAC Hx Hypercholesterolemia: Yes Hx Hypertension: Yes - PULMONARY Hx Respiratory Disorders: No - NEUROLOGICAL Hx Neurological Disorder: Yes Hx Vertigo: Yes - HEENT Hx HEENT Problems: No - RENAL Hx Chronic Kidney Disease: No - ENDOCRINE/METABOLIC Hx Endocrine Disorders: Yes Hx Diabetes Mellitus Type 2: Yes - HEMATOLOGICAL/ONCOLOGICAL Hx Blood Disorders: No - INTEGUMENTARY Hx Dermatological Problems: No - MUSCULOSKELETAL/RHEUMATOLOGICAL Hx Arthritis: Yes (back, scoliosis) - GASTROINTESTINAL Hx Gastrointestinal Disorders: No - GENITOURINARY/GYNECOLOGICAL Hx Genitourinary Disorders: No - PSYCHIATRIC Hx Substance Use: No - SURGICAL HISTORY Other/Comment: varicose vein stripping 1995 - ANESTHESIA Hx Anesthesia: Yes Hx Anesthesia Reactions: No Hx Malignant Hyperthermia: No Meds Allergies/Adverse Reactions: Allergies Allergy/AdvReac Type Severity Reaction Status Date / Time No Known Allergies Allergy Verified 11/25/18 09:19 Results - Vital Signs Recent Vital Signs: Last Vital Signs Temp 97.8 F 11/25/18 15:40 Pulse 67 11/25/18 19:57 Resp 18 11/25/18 15:40 BP 123/74 11/25/18 15:40 Pulse Ox 98 11/25/18 15:40 - Labs Result Diagrams: 11/25/18 10:22 11/25/18 11:09 Labs: Laboratory Results - last 24 hr 11/25/18 11/25/18 11/25/18 09:14 10:22 11:09 WBC 6.0 RBC 4.20 Hgb 13.5 Hct 38.9 MCV 92.8 MCH 32.0 H MCHC 34.6 RDW 13.0 Plt Count 249 MPV 7.7 Neut % (Auto) 74.7 Lymph % (Auto) 14.[address] [place] % (Auto) 6.4 Eos % (Auto) 3.8 Baso % (Auto) 0.3 Neut # (Auto) 4.5 Lymph # (Auto) 0.[address] # (Auto) 0.4 Eos # (Auto) 0.2 Baso # (Auto) 0.0 Sodium 130 L Potassium 4.3 Chloride 97 L Carbon Dioxide 24 Anion Gap 13 BUN 12 Creatinine 0.6 L Est GFR ( Amer) > 60 Est GFR (Non-Af Amer) > 60 POC Glucose (mg/dL) 182 H Random Glucose 91 D Calcium 8.8 Total Bilirubin 0.5 AST 24 ALT 28 Alkaline Phosphatase 38 Total Creatine Kinase CK-MB (Mass) Troponin I < 0.0120 Total Protein 6.2 L Albumin 3.7 Globulin 2.5 Albumin/Globulin Ratio 1.5 11/25/18 11/25/18 11/25/18 16:18 17:11 21:09 WBC RBC Hgb Hct MCV MCH MCHC RDW Plt Count MPV Neut % (Auto) Lymph % (Auto) [place] % (Auto) Eos % (Auto) Baso % (Auto) Neut # (Auto) Lymph # (Auto) [place] # (Auto) Eos # (Auto) Baso # (Auto) Sodium Potassium Chloride Carbon Dioxide Anion Gap BUN Creatinine Est GFR ( Amer) Est GFR (Non-Af Amer) POC Glucose (mg/dL) 83 192 H Random Glucose Calcium Total Bilirubin AST ALT Alkaline Phosphatase Total Creatine Kinase 129 CK-MB (Mass) 0.97 Troponin I < 0.0120 Total Protein Albumin Globulin Albumin/Globulin Ratio
--- NOTE | 2018-11-26 06:15 | HP ---
CHIEF COMPLAINT: Chest pain and headache times few hours. HISTORY OF PRESENT ILLNESS: This is a 63-year-old [place] female who is nonsmoker who has history of diabetes, systemic lupus erythematosus and hypertension. She has unknown cholesterol level. She is compliant with her diet, medication, and followup. She is being followed up by her PMD. According to patient, she took her metoprolol as she found her blood pressure to be 160/100 last night and the patient did not feel any improvement in her symptoms which she reported as headache and heaviness in the chest. According to the patient, she also had pain in the back of the neck for the last three days. She denies any excessive salt intake or any alcohol use. She denies any dyspnea on exertion, orthopnea, PND. She denies any history of dizziness, syncope. She denies any history of polyuria, polydipsia, polyphagia. She denies any history of sneezing, itchy eyes, itchy nose. She denies any history of abdominal pain, nausea, vomiting, or diarrhea. She denies any history of dysuria, hematuria, or pyuria. She denies any hematemesis, melena, or hematochezia. PAST MEDICAL HISTORY: Osteoarthritis, diabetes, hypertension, hyperlipidemia. SOCIAL HISTORY: Nonsmoker, non-EtOH user. CURRENT MEDICATIONS: She is on lamotrigine, metoprolol, Vasotec, hydroxychloroquine sulfate, metformin, Zocor. FAMILY HISTORY: Negative for premature coronary artery disease. PHYSICAL EXAMINATION: GENERAL: An elderly female, in no acute distress. VITAL SIGNS: Blood pressure 147/78, pulse 80, respiratory rate 19, and temperature 98.6. SKIN: Senile turgor. No bruises. No purpura. No petechia. No ecchymosis. HEENT: Atraumatic and normocephalic. Negative pallor. Negative jaundice. Extraocular movements are intact. NECK: Supple. No JVD. No lymph node. No thyromegaly. No carotid bruit. CHEST WALL: Bilateral symmetrical expansion. No tenderness. No deformity. LUNGS: Clear. No rales. No rhonchi. CARDIOVASCULAR SYSTEM: PMI not localized. S1 and S2 plus S4 positive. ABDOMEN: Soft and nontender. Bowel sounds are positive. RECTAL: No masses. No bleed. EXTREMITIES: No clubbing, cyanosis, or edema. CENTRAL NERVOUS SYSTEM: Awake, alert, and oriented x3. Cranial nerves II through XII are normal. Power 5/5 x4. Plantars are downgoing. ASSESSMENT: 1. Chest pain, rule out myocardial infarction. 2. Poorly controlled hypertension. 3. Diabetes. 4. Lupus erythematosus. PLAN: Admit. Detailed orders are written. Seen and examined. Rashid Owen MD
[2018-11-26 07:46] VITALS: BP 131/75; PULSE 66; RESP 20; TEMP 97.9
[2018-11-26] MEDS: (Novolin R) Insulin Human Regular 100 units/ml vial SC SCH ×2 (08:20→11:33)
[2018-11-26] MEDS: Metoprolol Succinate 25 mg XL Tab PO SCH (09:54)
[2018-11-26] MEDS ORDERED: Enoxaparin 40 mg Syringe SC SCH (10:00)
--- NOTE | 2018-11-26 22:38 | CP.PCM.DIS ---
Provider - Provider Date of Admission: 11/25/18 12:41 Attending physician: Rashid Owen MD Time Spent in preparation of Discharge (in minutes): 45 Hospital Course - Lab Results Lab Results: Most Recent Lab Values WBC 6.0 K/uL (4.8-10.8) 11/25/18 10:22 RBC 4.20 Mil/uL (3.80-5.20) 11/25/18 10:22 Hgb 13.5 g/dL (11.0-16.0) 11/25/18 10:22 Hct 38.9 % (34.0-47.0) 11/25/18 10:22 MCV 92.8 fL (81.0-99.0) 11/25/18 10:22 MCH 32.0 pg (27.0-31.0) H 11/25/18 10:22 MCHC 34.6 g/dL (33.0-37.0) 11/25/18 10:22 RDW 13.0 % (11.5-14.5) 11/25/18 10:22 Plt Count 249 K/uL (130-400) 11/25/18 10:22 MPV 7.7 fL (7.2-11.7) 11/25/18 10:22 Neut % (Auto) 74.7 % (50.0-75.0) 11/25/18 10:22 Lymph % (Auto) 14.8 % (20.0-40.0) L 11/25/18 10:22 [place] % (Auto) 6.4 % (0.0-10.0) 11/25/18 10:22 Eos % (Auto) 3.8 % (0.0-4.0) 11/25/18 10:22 Baso % (Auto) 0.3 % (0.0-2.0) 11/25/18 10:22 Neut # (Auto) 4.5 K/uL (1.8-7.0) 11/25/18 10:22 Lymph # (Auto) 0.9 K/uL (1.0-4.3) L 11/25/18 10:22 [place] # (Auto) 0.4 K/uL (0.0-0.8) 11/25/18 10:22 Eos # (Auto) 0.2 K/uL (0.0-0.7) 11/25/18 10:22 Baso # (Auto) 0.0 K/uL (0.0-0.2) 11/25/18 10:22 Sodium 130 mmol/L (132-148) L 11/25/18 11:09 Potassium 4.3 mmol/L (3.6-5.2) 11/25/18 11:09 Chloride 97 mmol/L (98-107) L 11/25/18 11:09 Carbon Dioxide 24 mmol/L (22-30) 11/25/18 11:09 Anion Gap 13 (10-20) 11/25/18 11:09 BUN 12 mg/dL (7-17) 11/25/18 11:09 Creatinine 0.6 mg/dL (0.7-1.2) L 11/25/18 11:09 Est GFR ( Amer) > 60 11/25/18 11:09 Est GFR (Non-Af Amer) > 60 11/25/18 11:09 POC Glucose (mg/dL) 88 mg/dL (65-110) 11/26/18 11:24 Random Glucose 91 mg/dL (65-105) D 11/25/18 11:09 Calcium 8.8 mg/dl (8.6-10.4) 11/25/18 11:09 Total Bilirubin 0.5 mg/dL (0.2-1.3) 11/25/18 11:09 AST 24 U/L (14-36) 11/25/18 11:09 ALT 28 U/L (9-52) 11/25/18 11:09 Alkaline Phosphatase 38 U/L (38-126) 11/25/18 11:09 Total Creatine Kinase 129 U/L (30-135) 11/25/18 17:11 CK-MB (Mass) 0.97 ng/mL (0.0-3.38) 11/25/18 17:11 Troponin I < 0.0120 ng/mL (0.00-0.120) 11/25/18 17:11 Total Protein 6.2 g/dL (6.3-8.3) L 11/25/18 11:09 Albumin 3.7 g/dL (3.5-5.0) 11/25/18 11:09 Globulin 2.5 gm/dL (2.2-3.9) 11/25/18 11:09 Albumin/Globulin Ratio 1.5 (1.0-2.1) 11/25/18 11:09 Discharge Plan - Discharge Medications Prescriptions: Famotidine [Pepcid] 40 mg PO DAILY #30 tablet - Follow Up Plan Condition: GOOD Disposition: HOME/ ROUTINE Instructions: Chest Pain (DC), Famotidine Additional Instructions: Follow up with Dr. Owen in 2-3 weeks Continue home medications New Prescriptions given Pepcid 40mg PO daily Activity as tolerated Call Dr. Owen or go to the emergency room if symptoms return or worsening Discuss with patient and family at the bedside who agree and verbalized understanding Referrals: Rashid Owen MD [Staff Provider] -
--- NOTE | 2018-11-27 00:35 | CARD ---
APPROVED REPORT Date of service: 11/25/2018 EKG Measurement Heart [id number] <Conclusion> Normal sinus rhythm Normal ECG
--- NOTE | 2018-11-27 05:48 | DS ---
DISCHARGE DIAGNOSES: Noncoronary chest pain, hypertension, hyperlipidemia, type 2 diabetes. HISTORY OF PRESENT ILLNESS AND HOSPITAL COURSE: This is a 63-year-old [place]ag[place] female with history of diabetes, hypertension, hyperlipidemia. Came in because of headache, dizziness and substernal chest pain, dull, nonradiating, not associated with diaphoresis or dizziness. The patient underwent chest x-ray which is negative. The patient had three sets of cardiac enzymes which is negative. The patient is feeling better. She is for discharge. Condition upon discharge is stable. PHYSICAL EXAMINATION: LUNGS: Clear. No rales. No rhonchi. CARDIOVASCULAR SYSTEM: S1 and S2, regular. ABDOMEN: Soft. ASSESSMENT AND PLAN: Poorly controlled hypertension and noncoronary chest pain. The patient's EKG is completely normal. She will be followed up as outpatient by her PMD. Rashid Owen MD
== END 2018-11-26 13:30 | disposition home or self-care (01) ==
LOC: C.ER 09:06 → C.9E 12:41 → C.5S 13:36
PROVIDERS: ADMIT Internal Medicine; ATTEND Internal Medicine
DX: R07.89 Other chest pain (principal); I10 Essential (primary) hypertension; E78.5 Hyperlipidemia, unspecified; E11.9 Type 2 diabetes mellitus without complications; M32.9 Systemic lupus erythematosus, unspecified; M41.9 Scoliosis, unspecified; M19.90 Unspecified osteoarthritis, unspecified site; Z79.84 Long term (current) use of oral hypoglycemic drugs; Z79.899 Other long term (current) drug therapy
CPT/HCPCS: 36415; 71045; 80053; 82948; 84484; 85025; 99285; G0378

== ENCOUNTER 2018-11-30 12:02 | Outpatient (CLI) | payer MEDICARE, MEDICAID | END 2018-11-30 12:03 | disposition home or self-care (01) | LOC: C.MRIC 12:02 | DX: D32.9 Benign neoplasm of meninges, unspecified (principal) ==

== ENCOUNTER 2018-11-30 12:16 | Outpatient (CLI) | payer MEDICARE, MEDICAID | END 2018-11-30 12:17 | disposition home or self-care (01) | LOC: C.MAMMO 12:16 | DX: Z12.31 Encounter for screening mammogram for malignant neoplasm of breast (principal); M81.0 Age-related osteoporosis without current pathological fracture ==